=== PATIENT | female | born 1945 | race Caucasian/White ===

== ENCOUNTER 2017-03-08 08:59 | Emergency (ER) | payer MEDICARE, OTHER ==
[~2017-03-08] VITALS: Ht 165.1 cm; Wt 73.4 kg
[~2017-03-08 08:59] MED LIST: ATOR10TA64 PO; BISO1TAB32 PO; LEVO88TA7 PO; OMEP-29 PO; POTA10TA18 PO
[2017-03-08 09:00] VITALS: Ht 165.1 cm; Wt 73.4 kg
--- OUTSIDE RECORDS SUMMARY | 2017-03-08 09:04 | XMS REPORT | Referral Summary ---
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 Name Role Phone Betsy Manzanares Primary Care Physician [phone] Encounter VC Date(s): 12/22/14 - 12/22/14 [facility], [place], Family [address] [place] [id number] Discharge Diagnosis: High cholesterol Discharge Diagnosis: Impaired fasting glucose Discharge Diagnosis: Arteriosclerosis of left carotid artery Discharge Diagnosis: Adult hypothyroidism Discharge Diagnosis: Acute neck pain Discharge Diagnosis: Benign hypertension Discharge Diagnosis: Chronic low back pain Discharge Disposition: Home or Self Care Attending Physician: Tobin Manzanares MD Admitting Physician: Tobin Manzanares MD Vital Signs Most recent to 1 oldest [Reference Range]: Temperature Tympanic 36.8 degC [36.6-38.1 degC] (12/22/14 9:34 AM) Peripheral Pulse 72 bpm Rate [60-100 bpm] (12/22/14 9:34 AM) Blood Pressure 142/74 mmHg [90-140/60-90 mmHg] *HI* (12/22/14 9:34 AM) Problem List Condition Effective Dates Status Health Status Informant Benign Active hypertension(Confirm ed) Chronic low back Active pain(Confirmed) High Active cholesterol(Confirme d) Hypertension, Active essential, benign(Confirmed) Adult Active hypothyroidism(Confi rmed) Impaired fasting Active glucose(Confirmed) Insomnia(Confirmed) Active Milia(Confirmed) Active Miscarriage(Confirme 1974 Active d) Combined Active hyperlipidemia(Confi rmed) Onychomycosis(Confir Active med) Osteoarthritis - Active lower leg(Confirmed) Osteoarthritis of Active knee(Confirmed) PPOSSIBLE Restless Active leg syndrome(Confirmed) Seborrheic Active keratoses(Confirmed) Stress Active incontinence(Confirm ed) Allergies, Adverse Reactions, Alerts Substance Reaction Severity Status amoxicillin diarrhea Moderate Active cefixime diarrhea Moderate Active iodine rash Moderate Active Medications atorvastatin 10 mg oral tablet 1 tabs, Oral, Bedtime (once a day), # 30 tabs, 8 Refill(s), Pharmacy: [facility], 1 tabs Oral Bedtime (once a day) Start Date: 11/05/14 Status: Ordered bisoprolol-hydrochlorothiazide 5 mg-6.25 mg oral tablet 0.5 tabs, Oral, Daily, # 90 tabs, 2 Refill(s), Pharmacy: [facility] Start Date: 11/05/14 Stop Date: 08/05/15 Status: Ordered fexofenadine 180 mg oral tablet 1 tabs, Oral, Daily, as needed for allergy symptoms, X 90 days, # 90 tabs, 3 Refill(s), Pharmacy: [facility], 1 tabs Oral Daily,x90 days,PRN:as needed for allergy symptoms Start Date: 12/22/14 Stop Date: 12/17/15 Status: Ordered ibuprofen 200 mg oral tablet 2 tabs, Oral, q4hr, as needed for pain, # 120 tabs, 0 Refill(s) Start Date: 04/01/14 Status: Ordered levothyroxine 88 mcg (0.088 mg) oral tablet 1 tabs, Oral, Daily, # 90 tabs, 2 Refill(s), Pharmacy: [facility], 1 tabs Oral Daily Start Date: 11/05/14 Stop Date: 08/05/15 Status: Ordered Shamokin 5 mg-325 mg oral tablet 1 tabs, Oral, q6hr, as needed for pain, # 30 tabs, 0 Refill(s) Start Date: 12/22/14 Stop Date: 01/08/15 Status: Ordered omeprazole 20 mg oral delayed release capsule 1 caps, Oral, Daily, # 90 caps, 2 Refill(s), Pharmacy: [facility], 1 caps Oral Daily Start Date: 11/05/14 Status: Ordered potassium chloride 10 mEq oral tablet, extended release See Instructions, TAKE ONE TABLET BY MOUTH EVERY DAY, # 90 tabs, 2 Refill(s), Pharmacy: [facility], TAKE ONE TABLET BY MOUTH EVERY DAY Special Instructions: TAKE ONE TABLET BY MOUTH EVERY DAY Start Date: 11/05/14 Status: Ordered Systane Balance 1 drops, Eye-Both, BID, as needed for dry eyes, 0 Refill(s) Start Date: 04/01/14 Status: Ordered terbinafine 250 mg oral tablet See Instructions, 1 tabs daily for 7 out of 28 days, for one year, # 30 tabs, 1 Refill(s), Pharmacy: [facility], 1 tabs daily for 7 out of 28 days, for one year Special Instructions: 1 tabs daily for 7 out of 28 days, for one year Start Date: 11/05/14 Status: Ordered Vitamin D3 1000 intl units oral tablet 1 tabs, Oral, Daily, # 30 tabs, 0 Refill(s) Start Date: 12/22/14 Status: Ordered Results No data available for this section Immunizations Vaccine Date Refusal Reason tetanus/diphth/pertuss (Tdap) adult/adol 08/16/06 influenza virus vaccine, inactivated1 08/13/14 influenza virus vaccine, live 08/19/13 influenza virus vaccine, live 10/02/12 pneumococcal 13-valent conjugate vaccine 08/13/14 pneumococcal 23-polyvalent vaccine 06/26/11 pneumococcal 23-polyvalent vaccine 01/27/02 tetanus-diphth toxoids (Td) adult/adol 07/16/96 zoster vaccine live 12/23/08 1Result Comment: [08/13/2014] See scanned document Procedures Procedure Date Related Diagnosis Body Site Amputation, traumatic, toe1 2013 Toe amputation status2 2013 Cataract extraction 2011 Colonoscopy --> NORMAL, repeat in 5 years 2010 for positive family history of Colon Ca cysto and dilatation 2005 Colonoscopy 2004 Colonoscopy and EGD 1999 Esophagogastroduodenoscopy [EGD] with closed 1999 biopsy cysto and dilatation 1995 cysto and diatation (see NextGen) 1992 Umbilical hernia repair 1991 Biopsy of (RT) Breast (Benign) 1985 Dilation and curettage 1973 Cystoscopy/Lazer Vaporization and Dil 1right 2nd toe, due to hammertoe condition. 2right 2nd toe Social History Social History Type Response Smoking Status Never smoker Assessment and Plan Extracted from: Title: Ambulatory Patient Education Author: Tobin Manzanares MD Date: 12/22 Family Medicine Musculoskeletal Pain Musculoskeletal pain is muscle and bebeto aches and pains. These pains can occur in any part of the body. Your caregiver may treat you without knowing the cause of the pain. They may treat you if blood or urine tests, X-rays, and other tests were normal. CAUSES There is often not a definite cause or reason for these pains. These pains may be caused by a type of germ (virus ). The discomfort may also come from overuse. Overuse includes working out too hard when your body is not fit. Bebeto aches also come from weather changes. Bone is sensitive to atmospheric pressure changes. HOME CARE INSTRUCTIONS Ask when your test results will be ready. Make sure you get your test results. Only take jvov-iic-rcpmdck or prescription medicines for pain, discomfort, or fever as directed by your caregiver. If you were given medications for your condition, do not drive, operate machinery or power tools, or sign legal documents for 24 hours. Do not drink alcohol. Do not take sleeping pills or other medications that may interfere with treatment. Continue all activities unless the activities cause more pain. When the pain lessens, slowly resume normal activities. Gradually increase the intensity and duration of the activities or exercise. During periods of severe pain, bed rest may be helpful. Lay or sit in any position that is comfortable. Putting ice on the injured area. Put ice in a bag. Place a towel between your skin and the bag. Leave the ice on for 15 to 20 minutes, 3 to 4 times a day. Follow up with your caregiver for continued problems and no reason can be found for the pain. If the pain becomes worse or does not go away, it may be necessary to repeat tests or do additional testing. Your caregiver may need to look further for a possible cause. SEEK IMMEDIATE MEDICAL CARE IF: You have pain that is getting worse and is not relieved by medications. You develop chest pain that is associated with shortness or breath, sweating, feeling sick to your stomach (nauseous ), or throw up (vomit ). Your pain becomes localized to the abdomen. You develop any new symptoms that seem different or that concern you. MAKE SURE YOU: Understand these instructions. Will watch your condition. Will get help right away if you are not doing well or get worse. Document Released: 10/14/2006 Document Revised: 01/05/2013 Document Reviewed: [employer] Patient Information 2014 [employer] [facility]. No follow up information was provided. Extracted from: Title: Neck pain, HTN Author: Tobin Manzanares MD Date: 12/22/14 Impression and Plan Diagnosis Impaired fasting glucose (ICD9 790.21, Discharge, Medical). High cholesterol (ICD9 272.4, Discharge, Medical). Chronic low back pain (ICD9 724.2, Discharge, Medical). Benign hypertension (ICD9 401.1, Discharge, Medical). Adult hypothyroidism (ICD9 244.9, Discharge, Medical). Acute neck pain (ICD9 723.1, Discharge, Medical). Plan: Get plain xrays of your neck today. Schedule the MRI of your neck at the lab desk. Take Valium 10 mg one hour prior to your MRI. Not to drive at all that day. Continue your routine meds. Add Coenzyme Q 10 200 mg daily + vitamin D3 1000 IU daily. Stop the multivitamin, calcium and fish oil. Try your C-Collar for a couple of weeks. Use heat to your neck off and on. See me 6 weeks or so. , May use the Shamokin as needed for pain: but not to drive within 4 hours of a dose. , Use saline gel in the nose at night.. Orders Orders (Selected) Outpatient Orders Ordered Office Visit Level 5 Est 65236: Future (On Hold) MRI Spine Cervical w/o Contrast: XR Spine Cervical Comp w/ Obliques: Prescriptions Prescribed Shamokin 5 mg-325 mg oral tablet: 1 tabs, Oral, q6hr, 30 tabs, PRN: as needed for pain fexofenadine 180 mg oral tablet: 1 tabs, Oral, Daily, 90 tabs, PRN: as needed for allergy symptoms Completed diazepam 10 mg oral tablet: 1 tabs, Oral, Once, 1 tabs, PRN: one hour prior to MRI. 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, Acute neck pain | Chronic low back pain | High cholesterol | Impaired fasting glucose | Adult hypothyroidism Diagnosis: Adult hypothyroidism Comment: Ordered: Office Visit Level 5 Est [id number]; 12/22/14 10:37:00 BOXING INSTRUCTOR, Acute neck pain | Chronic low back pain | High cholesterol | Impaired fasting glucose | Adult hypothyroidism Diagnosis: Benign hypertension Comment: Ordered: Office Visit Level 5 Est [id number]; 12/22/14 10:37:00 BOXING INSTRUCTOR, Acute neck pain | Chronic low back pain | High cholesterol | Impaired fasting glucose | Adult hypothyroidism Diagnosis: Chronic low back pain Comment: Ordered: Office Visit Level 5 Est [id number]; 12/22/14 10:37:00 BOXING INSTRUCTOR, Acute neck pain | Chronic low back pain | High cholesterol | Impaired fasting glucose | Adult hypothyroidism Diagnosis: High cholesterol Comment: Ordered: Office Visit Level 5 Est [id number]; 12/22/14 10:37:00 BOXING INSTRUCTOR, Acute neck pain | Chronic low back pain | High cholesterol | Impaired fasting glucose | Adult hypothyroidism Diagnosis: Impaired fasting glucose Comment: Ordered: Office Visit Level 5 Est [id number]; 12/22/14 10:37:00 BOXING INSTRUCTOR, Acute neck pain | Chronic low back pain | High cholesterol | Impaired fasting glucose | Adult hypothyroidism Additional Orders: Comment: Future Orders: MRI Spine Cervical w/o Contrast,*Est. 12/22/14 due within 1 months, Routine, Reason: Pain, neck, No, Acute neck pain Ordered: Shamokin 5 mg-325 mg oral tablet,1 tabs, Oral, q6hr, as needed for pain, # 30 tabs, 0 Refill(s) Ordered: Vitamin D3 1000 intl units oral tablet,1 tabs, Oral, Daily , # 30 tabs, 0 Refill(s) Future Orders: XR Spine Cervical Comp w/ Obliques,12/22/14, Routine , Reason: Osteoarthritis spine, Acute neck pain Other status: diazepam 10 mg oral tablet,1 tabs, Oral, Once, one hour prior to MRI, # 1 tabs, 0 Refill(s)(Complete) Ordered: fexofenadine 180 mg oral tablet,1 tabs, Oral, Daily, as needed for allergy symptoms, X 90 days, # 90 tabs, 3 Refill(s), Pharmacy: [facility], 1 tabs Oral Daily,x90 days,PRN:as needed for allergy symptoms End of Orders ."
--- OUTSIDE RECORDS SUMMARY | 2017-03-08 09:04 | XMS REPORT | Referral Summary ---
Author Author [facility] Organization [facility] Address Unknown Phone Unavailable Care Team Providers Care Paperhanger Supervisor Name Role Phone Betsy Manzanares Primary Care Physician [phone] Encounter Date(s): 06/08/15 - 06/08/15 [facility]nu[facility] [address] [place] [id number] Discharge Diagnosis: Hypercholesterolemia Discharge Disposition: 01-Home or Self Care Attending Physician: Tobin Manzanares MD Admitting Physician: Tobin Manzanares MD Vital Signs Most recent to 1 oldest [Reference Range]: Temperature Tympanic 36.6 degC [36.6-38.1 degC] (06/08/15 10:27 AM) Peripheral Pulse 68 bpm Rate [60-100 bpm] (06/08/15 10:27 AM) Blood Pressure 136/62 mmHg [90-140/60-90 mmHg] (06/08/15 10:27 AM) SpO2 97 % (06/08/15 10:27 AM) Problem List Condition Effective Dates Status Health Status Informant Benign Active hypertension(Confirm ed) Right cervical Active radiculopathy(Confir med) Cervical Active spondylosis(Confirme d) Chronic low back Active pain(Confirmed) Contusion of knee, Active right(Confirmed) Fatigue(Confirmed) Active GERD Active (gastroesophageal reflux disease)(Confirmed) High Active cholesterol(Confirme d) Hypertension, Active essential, benign(Confirmed) Adult Active hypothyroidism(Confi rmed) Impaired fasting Active glucose(Confirmed) Impingement Active syndrome, shoulder(Confirmed) Insomnia(Confirmed) Active Milia(Confirmed) Active Miscarriage(Confirme 1974 Active d) Combined Active hyperlipidemia(Confi rmed) Onychomycosis(Confir Active med) Osteoarthritis - Active lower leg(Confirmed) Osteoarthritis of Active knee(Confirmed) PPOSSIBLE Restless Active leg syndrome(Confirmed) Seborrheic Active keratoses(Confirmed) Cervical spinal Active stenosis(Confirmed) Stress Active incontinence(Confirm ed) Allergies, Adverse Reactions, Alerts Substance Reaction Severity Status amoxicillin diarrhea Moderate Active cefixime diarrhea Moderate Active iodine rash Moderate Active Medications Aspir 81 81 mg, Oral, Daily, 0 Refill(s) Start Date: 02/01/15 Status: Ordered atorvastatin 10 mg oral tablet See Instructions, TAKE ONE (1) TABLET(S) DAILY AT BEDTIME, # 30 Each, eRx: Pharmacy - [facility], TAKE ONE (1) TABLET(S) DAILY AT BEDTIME Start Date: 07/27/15 Status: Ordered bisoprolol-hydrochlorothiazide 5 mg-6.25 mg oral tablet .5 mg, Oral, Daily, per Dr. Manzanares, # 30 tabs, 0 Refill(s) Start Date: 08/25/15 Status: Ordered Co-Q10 200 mg, Oral, Daily, 0 Refill(s) Start Date: 02/01/15 Status: Ordered fexofenadine 180 mg oral tablet 1 tabs, Oral, Daily, as needed for allergy symptoms, X 90 days, # 90 tabs, 3 Refill(s), [place] [facility] 1 tabs Oral Daily,x90 days,PRN:as needed for allergy symptoms Start Date: 12/22/14 Stop Date: 12/17/15 Status: Ordered gabapentin 100 mg oral capsule 1 caps, Oral, BID, # 180 caps, 3 Refill(s), Pharmacy: [facility], 1 caps Oral BID Start Date: 02/14/15 Status: Ordered levothyroxine 88 mcg (0.088 mg) oral tablet 88 mcg 1 tabs, Oral, Daily, per Dr. Manzanares, # 30 tabs, 0 Refill(s) Start Date: 08/25/15 Status: Ordered [place] 5 mg-325 mg oral tablet 1 tabs, Oral, Daily, as needed for back, neck and joint pain, 0 Refill(s) Start Date: 08/15/15 Status: Ordered omeprazole 20 mg oral delayed release capsule 20 mg 1 caps, Oral, Daily, # 90 caps, 1 Refill(s), Pharmacy: [facility], 1 caps Oral Daily Start Date: 06/13/15 Status: Ordered potassium chloride 10 mEq oral tablet, extended release See Instructions, TAKE ONE (1) TABLET(S) DAILY, # 90 Each, eRx: Pharmacy - [facility], TAKE ONE (1) TABLET(S) DAILY Start Date: 08/05/15 Status: Ordered Systane Balance 1 drops, Eye-Both, BID, as needed for dry eyes, 0 Refill(s) Start Date: 04/01/14 Status: Ordered terbinafine 250 mg oral tablet See Instructions, Take 1 tablet daily for 7 out of every 28 days for one year. , # 21 tabs, eRx: [facility], Take 1 tablet daily for 7 out of every 28 days for one year. Start Date: 04/27/15 Status: Ordered terbinafine 250 mg oral tablet See Instructions, 1 tabs daily for 7 out of 28 days, for one year, # 30 tabs, 1 Refill(s), [place] [facility] [place] 1 tabs daily for 7 out of 28 days, for one year Start Date: 11/05/14 Status: Ordered Vitamin D3 1000 intl units oral tablet 1 tabs, Oral, Daily, # 30 tabs, 0 Refill(s) Start Date: 12/22/14 Status: Ordered Results Chemistry Most recent to 1 oldest [Reference Range]: Vitamin B12 Lvl 711 pg/mL [213-816 pg/mL] (06/08/15 11:24 AM) Immunizations Vaccine Date Refusal Reason tetanus/diphth/pertuss (Tdap) adult/adol 08/16/06 hepatitis A adult vaccine 08/15/15 influenza virus vaccine, inactivated 08/15/15 influenza virus vaccine, inactivated1 08/13/14 influenza virus vaccine, live 08/19/13 influenza virus vaccine, live 10/02/12 pneumococcal 13-valent conjugate vaccine 08/13/14 pneumococcal 23-polyvalent vaccine 06/26/11 pneumococcal 23-polyvalent vaccine 01/27/02 tetanus-diphth toxoids (Td) adult/adol 07/16/96 zoster vaccine live 12/23/08 1Result Comment: [08/13/2014] See scanned document Procedures Procedure Date Related Diagnosis Body Site Amputation, traumatic, toe1 2013 Cataract extraction2011 Colonoscopy --> NORMAL, repeat in 5 years 2011 for positive family history of Colon Ca cysto and dilatation 2006 Colonoscopy 2005 Colonoscopy and EGD 2000 Esophagogastroduodenoscopy [EGD] with closed 2000 biopsy cysto and dilatation 1995 cysto and diatation (see NextGen) 1992 Umbilical hernia repair 1991 Biopsy of (RT) Breast (Benign)3 1985 Dilation and curettage 1973 Cystoscopy/Lazer Vaporization and Dil 1right 2nd toe, due to hammertoe condition. 2left eye only 3biopsy Social History Social History Type Response Smoking Status Never smoker Assessment and Plan Extracted from: Title: Ambulatory Patient Education Author: Tobin Manzanares MD Date: 06/08 Family Medicine Gastroesophageal Reflux Disease, Adult Gastroesophageal reflux disease (GERD) happens when acid from your stomach flows up into the esophagus. When acid comes in contact with the esophagus, the acid causes soreness (inflammation) in the esophagus. Over time, GERD may create small holes (ulcers) in the lining of the esophagus. CAUSES Increased body weight. This puts pressure on the stomach, making acid rise from the stomach into the esophagus. Smoking. This increases acid production in the stomach. Drinking alcohol. This causes decreased pressure in the lower esophageal sphincter (valve or ring of muscle between the esophagus and stomach), allowing acid from the stomach into the esophagus. Late evening meals and a full stomach. This increases pressure and acid production in the stomach. A malformed lower esophageal sphincter. Sometimes, no cause is found. SYMPTOMS Burning pain in the lower part of the mid-chest behind the breastbone and in the mid-stomach area. This may occur twice a week or more often. Trouble swallowing. Sore throat. Dry cough. Asthma-like symptoms including chest tightness, shortness of breath, or wheezing. DIAGNOSIS Your caregiver may be able to diagnose GERD based on your symptoms. In some cases, X-rays and other tests may be done to check for complications or to check the condition of your stomach and esophagus. TREATMENT Your caregiver may recommend [id number] or prescription medicines to help decrease acid production. Ask your caregiver before starting or adding any new medicines. HOME CARE INSTRUCTIONS Change the factors that you can control. Ask your caregiver for guidance concerning weight loss, quitting smoking, and alcohol consumption. Avoid foods and drinks that make your symptoms worse, such as: Caffeine or alcoholic drinks. Chocolate. Peppermint or mint flavorings. Garlic and onions. Spicy foods. [place]win fruits, such as oranges, emmy, or limes. Tomato-based foods such as sauce, chili, salsa, and pizza. Fried and fatty foods. Avoid lying down for the 3 hours prior to your bedtime or prior to taking a nap. Eat small, frequent meals instead of large meals. Wear loose-fitting clothing. Do not wear anything tight around your waist that causes pressure on your stomach. Raise the head of your bed 6 to 8 inches with wood blocks to help you sleep. Extra pillows will not help. Only take htyd-yum-ksminou or prescription medicines for pain, discomfort, or fever as directed by your caregiver. Do not take aspirin, ibuprofen, or other nonsteroidal anti-inflammatory drugs (NSAIDs). SEEK IMMEDIATE MEDICAL CARE IF: You have pain in your arms, neck, jaw, teeth, or back. Your pain increases or changes in intensity or duration. You develop nausea, vomiting, or sweating (diaphoresis). You develop shortness of breath, or you faint. Your vomit is green, yellow, black, or looks like coffee grounds or blood. Your stool is red, bloody, or black. These symptoms could be signs of other problems, such as heart disease, gastric bleeding, or esophageal bleeding. MAKE SURE YOU: Understand these instructions. Will watch your condition. Will get help right away if you are not doing well or get worse. Document Released: 07/24/2006 Document Revised: 01/05/2013 Document Reviewed: [facility] Patient Information 2015 [facility], [facility]. This information is not intended to replace advice given to you by your health care provider. Make sure you discuss any questions you have with your health care provider. No follow up information was provided. Extracted from: Title: Neck pain, Author: Tobin Manzanares MD Date: 06/08/15 hypercholesterolemia, HTN Impression and Plan Diagnosis Benign hypertension (ICD9 401.1, Working, Medical). Cervical spinal stenosis (ICD9 723.0, Working, Medical). Fatigue (ICD9 780.79, Working, Medical). GERD (gastroesophageal reflux disease) (ICD9 530.81, Working, Medical). Hypercholesterolemia (ICD9 272.0, Discharge, Medical). Plan: 1) Vitamin B12 level ordered, due to fatigue. 2) Try to wean off the Omeprazole, if possible. 3) Continue your other meds. 4) Extensive discussion held about treatments of neck pain. 5) Try PT with a TENS trial for the neck pain. 6) See me in 2-3 months for a physical.. Orders Orders (Selected) Outpatient Orders Ordered Office Visit Level 4 Est 29547: Vitamin B12 Level: . Dx/Order Association Plan: Diagnosis: Benign hypertension Comment: Ordered: Office Visit Level 4 Est [id number]; 06/08/15 11:15:00 CDT, Cervical spinal stenosis | Fatigue | Benign hypertension | Hypercholesterolemia | GERD (gastroesophageal reflux disease) Diagnosis: Cervical spinal stenosis Comment: Ordered: Office Visit Level 4 Est [id number]; 06/08/15 11:15:00 CDT, Cervical spinal stenosis | Fatigue | Benign hypertension | Hypercholesterolemia | GERD (gastroesophageal reflux disease) Diagnosis: Fatigue Comment: Ordered: Vitamin B12 Level; Blood, Routine Collect, 06/08/15 11:16 :00 CDT, Once, Stop date 06/08/15 11:16:00 CDT, Lab Collect, Fatigue Office Visit Level 4 Est [id number]; 06/08/15 11:15:00 CDT, Cervical spinal stenosis | Fatigue | Benign hypertension | Hypercholesterolemia | GERD (gastroesophageal reflux disease) Diagnosis: GERD (gastroesophageal reflux disease) Comment: Ordered: Office Visit Level 4 Est [id number]; 06/08/15 11:15:00 CDT, Cervical spinal stenosis | Fatigue | Benign hypertension | Hypercholesterolemia | GERD (gastroesophageal reflux disease) Diagnosis: Hypercholesterolemia Comment: Ordered: Office Visit Level 4 Est [id number]; 06/08/15 11:15:00 CDT, Cervical spinal stenosis | Fatigue | Benign hypertension | Hypercholesterolemia | GERD (gastroesophageal reflux disease) End of Orders ."
--- OUTSIDE RECORDS SUMMARY | 2017-03-08 09:04 | XMS REPORT | Referral Summary ---
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 Name Role Phone Betsy Manzanares Primary Care Physician [phone] Encounter VC Date(s): 08/15/15 - 08/15/15 [facility] [address] [place] [id number] Discharge Disposition: 01-Home or Self Care Attending Physician: Tobin Manzanares MD Admitting Physician: Tobin Manzanares MD Vital Signs Most recent to 1 oldest [Reference Range]: Temperature Tympanic 36.8 degC [36.6-38.1 degC] (08/15/15 8:51 AM) Peripheral Pulse 61 bpm Rate [60-100 bpm] (08/15/15 8:51 AM) Blood Pressure 146/80 mmHg [90-140/60-90 mmHg] *HI* (08/15/15 8:51 AM) SpO2 95 % (08/15/15 8:51 AM) Problem List Condition Effective Dates Status Health Status Informant Benign Active hypertension(Confirm ed) Right cervical Active radiculopathy(Confir med) Cervical Active spondylosis(Confirme d) Chronic low back Active pain(Confirmed) Contusion of knee, Active right(Confirmed) DDD (degenerative Active disc disease), cervical(Confirmed) Fatigue(Confirmed) Active GERD Active (gastroesophageal reflux disease)(Confirmed) High Active cholesterol(Confirme d) Hypertension, Active essential, benign(Confirmed) Adult Active hypothyroidism(Confi rmed) Impaired fasting Active glucose(Confirmed) Impingement Active syndrome, shoulder(Confirmed) Insomnia(Confirmed) Active Milia(Confirmed) Active Miscarriage(Confirme 1974 Active d) Combined Active hyperlipidemia(Confi rmed) Cervicalgia(Confirme Active d) Onychomycosis(Confir Active med) Osteoarthritis of Active knee(Confirmed) Osteoarthritis - Active lower leg(Confirmed) PPOSSIBLE Restless Active leg syndrome(Confirmed) Seborrheic Active keratoses(Confirmed) Cervical spinal Active stenosis(Confirmed) Acquired Active spondylolisthesis(Co nfirmed) Stress Active incontinence(Confirm ed) Allergies, Adverse Reactions, Alerts Substance Reaction Severity Status amoxicillin diarrhea Moderate Active cefixime diarrhea Moderate Active iodine rash Moderate Active Medications Aspir 81 81 mg, Oral, Daily, 0 Refill(s) Start Date: 02/01/15 Status: Ordered atorvastatin 10 mg oral tablet 10 mg 1 tabs, Oral, Bedtime (once a day), # 30 tabs, 10 Refill(s), [place] [facility] [place], 1 tabs Oral Bedtime (once a day) Start Date: 09/29/15 Status: Ordered Co-Q10 200 mg, Oral, Daily, 0 Refill(s) Start Date: 02/01/15 Status: Ordered levothyroxine 88 mcg (0.088 mg) oral tablet 88 mcg 1 tabs, Oral, Daily, # 90 tabs, 2 Refill(s), [facility] [place], 1 tabs Oral Daily Start Date: 10/10/15 Status: Ordered lisinopril 5 mg oral tablet 5 mg 1 tabs, Oral, Daily, # 30 tabs, 11 Refill(s), Pharmacy: [facility] [place], 1 tabs Oral Daily Start Date: 02/13/16 Status: Ordered [place] 5 mg-325 mg oral tablet 1 tabs, Oral, q6hr, as needed for pain, FOR NECK AND BACK PAIN, # 30 tabs, 0 Refill(s) Start Date: 12/09/15 Status: Ordered omeprazole 20 mg oral delayed release capsule See Instructions, 1 caps Oral Daily, # 90 caps, eRx: Pharmacy - [place], 1 caps Oral Daily Start Date: 12/09/15 Status: Ordered Systane Balance 1 drops, Eye-Both, BID, as needed for dry eyes, 0 Refill(s) Start Date: 04/01/14 Status: Ordered Vitamin D3 1000 intl units oral tablet 1 tabs, Oral, Daily, # 30 tabs, 0 Refill(s) Start Date: 2/25/15 Status: Ordered Results Hematology Most recent to 1 oldest [Reference Range]: WBC [4.8-10.8 5.7 10*3/uL 10*3/uL] (08/15/15 10:12 AM) RBC [4.00-5.20] 4.73 (08/15/15 10:12 AM) Hgb [12.0-16.0 13.5 gm/dL gm/dL] (08/15/15 10:12 AM) Hct [37.0-47.0 %] 40.4 % (08/15/15 10:12 AM) MCV [82.0-99.0 fL] 85.4 fL (08/15/15 10:12 AM) MCH [27.0-32.0 pg] 28.5 pg (08/15/15 10:12 AM) MCHC [32.0-36.0 33.4 gm/dL gm/dL] (08/15/15 10:12 AM) RDW [11.5-14.5 %] 13.4 % (08/15/15 10:12 AM) Platelet [150-400 298 10*3/uL 10*3/uL] (08/15/15 10:12 AM) MPV [8.8-14.8 fL] 10.4 fL (08/15/15 10:12 AM) Immature 0.2 % Granulocytes (08/15/15 10:12 AM) [0.0-1.0 %] Neutrophils [51-75 59 % %] (08/15/15 10:12 AM) Lymphocytes [20-46 28 % %] (08/15/15 10:12 AM) Monocytes [4-11 %] 9 % (08/15/15 10:12 AM) Eosinophils [0-4 %] 4 % (08/15/15 10:12 AM) Basophils [0-2 %] 0 % (08/15/15 10:12 AM) Neutro Absolute 3.39 10*3 [1.90-7.00 10*3] (08/15/15 10:12 AM) Lymph Absolute 1.59 10*3 [0.80-3.30 10*3] (08/15/15 10:12 AM) [place] Absolute 0.50 10*3 [0.30-1.00 10*3] (08/15/15 10:12 AM) Eos Absolute 0.22 10*3 [0.00-0.50 10*3] (08/15/15 10:12 AM) Baso Absolute 0.02 10*3 [0.00-0.20 10*3] (08/15/15 10:12 AM) Chemistry Most recent to 1 oldest [Reference Range]: Sodium Lvl [135-144 141 mEq/L mEq/L] (08/15/15 10:12 AM) Potassium Lvl 4.6 mEq/L [3.5-5.2 mEq/L] (08/15/15 10:12 AM) Chloride [99-111 107 mEq/L mEq/L] (08/15/15 10:12 AM) CO2 [22-31 mEq/L] 27 mEq/L (08/15/15 10:12 AM) AGAP [3-20] 7 (08/15/15 10:12 AM) BUN [10-20 mg/dL] 18 mg/dL (08/15/15 10:12 AM) Glucose Lvl [70-99 108 mg/dL mg/dL] *HI* (08/15/15 10:12 AM) Creatinine Lvl 1.02 mg/dL [0.57-1.11 mg/dL] (08/15/15 10:12 AM) eGFR [>60 mL/min] 54 mL/min 1 *ABN* (08/15/15 10:12 AM) Calcium Lvl 10.1 mg/dL [8.9-10.5 mg/dL] (08/15/15 10:12 AM) Albumin Lvl [3.4-4.8 4.2 gm/dL gm/dL] (08/15/15 10:12 AM) Total Protein 7.3 gm/dL [6.2-8.1 gm/dL] (08/15/15 10:12 AM) Globulin [1.8-4.0 3.1 gm/dL gm/dL] (08/15/15 10:12 AM) ALT [0-55 U/L] 21 U/L (08/15/15 10:12 AM) AST [5-34 U/L] 22 U/L (08/15/15 10:12 AM) Alk Phos [40-150 68 U/L U/L] (08/15/15 10:12 AM) Bili Total [0.2-1.2 0.4 mg/dL mg/dL] (08/15/15 10:12 AM) Chol [0-199 mg/dL] 170 mg/dL (08/15/15 10:12 AM) Trig [0-149 mg/dL] 97 mg/dL (08/15/15 10:12 AM) HDL [40-84 mg/dL] 46 mg/dL (08/15/15 10:12 AM) LDL [0-130 mg/dL] 105 mg/dL (08/15/15 10:12 AM) VLDL Cholesterol 19 mg/dL [0-28 mg/dL] (08/15/15 10:12 AM) Cardiac Risk 3.7 [0.0-5.0] (08/15/15 10:12 AM) Hgb A1c [4.1-5.6 %] 5.9 % *HI* (08/15/15 10:12 AM) eAvg Glucose 122.6 mg/dL (08/15/15 10:12 AM) 1Result Comment: Multiply eGFR results by 1.21 for race. Urinalysis Most recent to 1 oldest [Reference Range]: UA Color Yellow (08/15/15 10:20 AM) UA Appear Clear (08/15/15 10:20 AM) UA pH [5.0-8.0] 6.0 (08/15/15 10:20 AM) UA Leuk Est Pos 1+ [Negative] *ABN* (08/15/15 10:20 AM) UA Nitrite Negative [Negative] (08/15/15 10:20 AM) UA Protein Negative [Negative] (08/15/15 10:20 AM) UA Glucose Negative [Negative] (08/15/15 10:20 AM) UA Ketones Negative [Negative] (08/15/15 10:20 AM) UA Urobilinogen 1.0 mg/dL [<1.0 mg/dL] (08/15/15 10:20 AM) UA Bili [Negative] Negative (08/15/15 10:20 AM) UA Blood [Negative] Pos 2+ *ABN* (08/15/15 10:20 AM) UA Spec Grav 1.024 [1.003-1.030] (08/15/15 10:20 AM) Type Clean Catch (08/15/15 10:20 AM) UA WBC [0-4] 0-2 (08/15/15 10:20 AM) UA RBC [0-4] 10-20 *ABN* (08/15/15 10:20 AM) Epithelial Cells 2-5 (08/15/15 10:20 AM) Microbiology Reports TEST: Urine Culture STATUS: Auth (Verified) BODY SITE: SOURCE: Urine COLLECTED DATE/TIME: 08/15/15 10:20 AM Urine Culture Normal urogenital/skin anthony present Immunizations Vaccine Date Refusal Reason tetanus/diphth/pertuss (Tdap) adult/adol 08/16/06 hepatitis A adult vaccine 02/13/16 hepatitis A adult vaccine 08/15/15 influenza virus vaccine, inactivated 08/15/15 influenza virus vaccine, inactivated1 08/13/14 influenza virus vaccine, live 08/19/13 influenza virus vaccine, live 10/02/12 pneumococcal 13-valent conjugate vaccine 08/13/14 pneumococcal 23-polyvalent vaccine 06/26/11 pneumococcal 23-polyvalent vaccine 01/27/02 tetanus-diphth toxoids (Td) adult/adol 07/16/96 zoster vaccine live 12/23/08 1Result Comment: [08/13/2014] See scanned document Procedures Procedure Date Related Diagnosis Body Site Right C4-6 Radiofrequency 12/14/15 Colonoscopy normal1 12/08/15 Right C4-6 Medial Branch Block with 11/24/15 Differential Right C4-6 Medial Branch Block 11/17/15 Amputation, traumatic, toe2 2013 Cataract extraction2011 Colonoscopy --> NORMAL, repeat in 5 years 2010 for positive family history of Colon Ca cysto and dilatation 2006 Colonoscopy 2005 Colonoscopy and EGD 1999 Esophagogastroduodenoscopy [EGD] with closed 1999 biopsy cysto and dilatation 1995 cysto and diatation (see NextGen) 1992 Umbilical hernia repair 1991 Biopsy of (RT) Breast (Benign)4 1985 Dilation and curettage 1973 Cystoscopy/Lazer Vaporization and Dil 1hyperplastic polyp, sigmoid diverticulosis, family history colon cancer in her father, repeat in 5 years 2right 2nd toe, due to hammertoe condition. 3left eye only 4biopsy Social History Social History Type Response Smoking Status Never smoker Assessment and Plan Extracted from: Title: Ambulatory Patient Education Author: Tobin Manzanares MD Date: Family Medicine Back Exercises Back exercises help treat and prevent back injuries. The goal of back exercises is to increase the strength of your abdominal and back muscles and the flexibility of your back. These exercises should be started when you no longer have back pain. Back exercises include: Pelvic Tilt. Lie on your back with your knees bent. Tilt your pelvis until the lower part of your back is against the floor. Hold this position 5 to 10 sec and repeat 5 to 10 times. Knee to Chest. Pull first 1 knee up against your chest and hold for 20 to 30 seconds, repeat this with the other knee, and then both knees. This may be done with the other leg straight or bent, whichever feels better. Sit-Ups or Curl-Ups. Bend your knees 90 degrees. Start with tilting your pelvis, and do a partial, slow sit-up, lifting your trunk only 30 to 45 degrees off the floor. Take at least 2 to 3 seconds for each sit-up. Do not do sit-ups with your knees out straight. If partial sit-ups are difficult, simply do the above but with only tightening your abdominal muscles and holding it as directed. Hip-Lift. Lie on your back with your knees flexed 90 degrees. Push down with your feet and shoulders as you raise your hips a couple inches off the floor; hold for 10 seconds, repeat 5 to 10 times. Back arches. Lie on your stomach, propping yourself up on bent elbows. Slowly press on your hands, causing an arch in your low back. Repeat 3 to 5 times. Any initial stiffness and discomfort should lessen with repetition over time. Shoulder-Lifts. Lie face down with arms beside your body. Keep hips and torso pressed to floor as you slowly lift your head and shoulders off the floor. Do not overdo your exercises, especially in the beginning. Exercises may cause you some mild back discomfort which lasts for a few minutes; however, if the pain is more severe, or lasts for more than 15 minutes, do not continue exercises until you see your caregiver. Improvement with exercise therapy for back problems is slow. See your caregivers for assistance with developing a proper back exercise program. Document Released: 11/21/2005 Document Revised: 01/05/2013 Document Reviewed: [facility] Patient Information 2015 [facility]. This information is not intended to replace advice given to you by your health care provider. Make sure you discuss any questions you have with your health care provider. Cholesterol Cholesterol is a white, waxy, fat-like substance needed by your body in small amounts. The liver makes all the cholesterol you need. Cholesterol is carried from the liver by the blood through the blood vessels. Deposits of cholesterol ( plaque) may build up on blood vessel beckman. These make the arteries narrower and stiffer. Cholesterol plaques increase the risk for heart attack and stroke. You cannot feel your cholesterol level even if it is very high. The only way to know it is high is with a blood test. Once you know your cholesterol levels, you should keep a record of the test results. Work with your health care provider to keep your levels in the desired range. WHAT DO THE RESULTS MEAN? Total cholesterol is a rough measure of all the cholesterol in your blood. LDL is the so-called bad cholesterol. This is the type that deposits cholesterol in the beckman of the arteries. You want this level to be low. HDL is the good cholesterol because it cleans the arteries and carries the LDL away. You want this level to be high. Triglycerides are fat that the body can either burn for energy or store. High levels are closely linked to heart disease. WHAT ARE THE DESIRED LEVELS OF CHOLESTEROL? Total cholesterol below 200. LDL below 100 for people at risk, below 70 for those at very high risk. HDL above 50 is good, above 60 is best. Triglycerides below 150. HOW CAN I LOWER MY CHOLESTEROL? Diet. Follow your diet programs as directed by your health care provider. Choose fish or white meat chicken and turkey, roasted or baked. Limit fatty cuts of red meat, fried foods, and processed meats, such as sausage and lunch meats. Eat lots of fresh fruits and vegetables. Choose whole grains, beans, pasta, potatoes, and cereals. Use only small amounts of olive, corn, or canola oils. Avoid butter, mayonnaise, shortening, or palm kernel oils. Avoid foods with trans fats. Drink skim or nonfat milk and eat low-fat or nonfat yogurt and cheeses. Avoid whole milk, cream, ice cream, egg yolks, and full-fat cheeses. Healthy desserts include chandler food cake, sue snaps, animal crackers, hard candy, popsicles, and low-fat or nonfat frozen yogurt. Avoid pastries, cakes, pies, and cookies. Exercise. Follow your exercise programs as directed by your health care provider. A regular program helps decrease LDL and raise HDL. A regular program helps with weight control. Do things that increase your activity level like gardening, walking, or taking the stairs. Ask your health care provider about how you can be more active in your daily life. Medicine. Take medicine only as directed by your health care provider. Medicine may be prescribed by your health care provider to help lower cholesterol and decrease the risk for heart disease. If you have several risk factors, you may need medicine even if your levels are normal. Document Released: 07/09/2002 Document Revised: 02/28/2015 Document Reviewed: [facility] Patient Information 2015 [employer]. This information is not intended to replace advice given to you by your health care provider. Make sure you discuss any questions you have with your health care provider. Gastroesophageal Reflux Disease, Adult Gastroesophageal reflux disease [...] and esophagus. TREATMENT Your caregiver may recommend [id number] or prescription medicines to help decrease acid [...] mint flavorings. Garlic and onions. Spicy foods. [place] fruits, such as oranges, emmy, or limes. [...] Extra pillows will not help. Only take [id number]-[id number] or prescription medicines for pain, discomfort, or [...] Released: 07/24/2006 Document Revised: 01/05/2013 Document Reviewed: [employer] Patient Information 2015 [employer] [facility]. This information is not intended to replace advice given to you by your health care provider. Make sure you discuss any questions you have with your health care provider. Preventive Care for Adults A healthy lifestyle and preventive care can promote health and wellness. Preventive health guidelines for women include the following smith practices. A routine yearly physical is a good way to check with your health care provider about your health and preventive screening. It is a chance to share any concerns and updates on your health and to receive a thorough exam. Visit your dentist for a routine exam and preventive care every 6 months. Lititz your teeth twice a day and floss once a day. Good oral hygiene prevents tooth decay and gum disease. The frequency of eye exams is based on your age, health, family medical history, use of contact lenses, and other factors. Follow your health care provider's recommendations for frequency of eye exams. Eat a healthy diet. Foods like vegetables, fruits, whole grains, low-fat dairy products, and lean protein foods contain the nutrients you need without too many calories. Decrease your intake of foods high in solid fats, added sugars, and salt. Eat the right amount of calories for you.Get information about a proper diet from your health care provider, if necessary. Regular physical exercise is one of the most important things you can do for your health. Most adults should get at least 150 minutes of moderate- intensity exercise (any activity that increases your heart rate and causes you to sweat) each week. In addition, most adults need muscle-strengthening exercises on 2 or more days a week. Maintain a healthy weight. The body mass index (BMI) is a screening tool to identify possible weight problems. It provides an estimate of body fat based on height and weight. Your health care provider can find your BMI and can help you achieve or maintain a healthy weight.For adults 20 years and older: A BMI below 18.5 is considered underweight. A BMI of 18.5 to 24.9 is normal. A BMI of 25 to 29.9 is considered overweight. A BMI of 30 and above is considered obese. Maintain normal blood lipids and cholesterol levels by exercising and minimizing your intake of saturated fat. Eat a balanced diet with plenty of fruit and vegetables. Blood tests for lipids and cholesterol should begin at age 20 and be repeated every 5 years. If your lipid or cholesterol levels are high, you are over 50, or you are at high risk for heart disease, you may need your cholesterol levels checked more frequently.Ongoing high lipid and cholesterol levels should be treated with medicines if diet and exercise are not working. If you smoke, find out from your health care provider how to quit. If you do not use tobacco, do not start. Lung cancer screening is recommended for adults aged 5580 years who are at high risk for developing lung cancer because of a history of smoking. A yearly low-dose CT scan of the lungs is recommended for people who have at least a 34-laug-ziyv history of smoking and are a current smoker or have quit within the past 15 years. A pack year of smoking is smoking an average of 1 pack of cigarettes a day for 1 year (for example: 1 pack a day for 30 years or 2 packs a day for 15 years). Yearly screening should continue until the smoker has stopped smoking for at least 15 years. Yearly screening should be stopped for people who develop a health problem that would prevent them from having lung cancer treatment. If you are , do not drink alcohol. If you are , be very cautious about drinking alcohol. If you are not and choose to drink alcohol, do not have more than 1 drink per day. One drink is considered to be 12 ounces (355 mL) of beer, 5 ounces (148 mL) of wine, or 1.5 ounces (44 mL) of liquor. Avoid use of street drugs. Do not share needles with anyone. Ask for help if you need support or instructions about stopping the use of drugs. High blood pressure causes heart disease and increases the risk of stroke. Your blood pressure should be checked at least every 1 to 2 years. Ongoing high blood pressure should be treated with medicines if weight loss and exercise do not work. If you are 5579 years old, ask your health care provider if you should take aspirin to prevent strokes. Diabetes screening involves taking a blood sample to check your fasting blood sugar level. This should be done once every 3 years, after age 45, if you are within normal weight and without risk factors for diabetes. Testing should be considered at a younger age or be carried out more frequently if you are overweight and have at least 1 risk factor for diabetes. Breast cancer screening is essential preventive care for women. You should practice "breast self-awareness." This means understanding the normal appearance and feel of your breasts and may include breast self-examination. Any changes detected, no matter how small, should be reported to a health care provider. Women in their 20s and 30s should have a clinical breast exam (CBE) by a health care provider as part of a regular health exam every 1 to 3 years. After age 40, women should have a CBE every year. Starting at age 40, women should consider having a mammogram (breast X-ray test) every year. Women who have a family history of breast cancer should talk to their health care provider about genetic screening. Women at a high risk of breast cancer should talk to their health care providers about having an MRI and a mammogram every year. Breast cancer gene (BRCA)-related cancer risk assessment is recommended for women who have family members with BRCA-related cancers. BRCA-related cancers include breast, ovarian, tubal, and peritoneal cancers. Having family members with these cancers may be associated with an increased risk for harmful changes (mutations) in the breast cancer genes BRCA1 and BRCA2. Results of the assessment will determine the need for genetic counseling and BRCA1 and BRCA2 testing. Routine pelvic exams to screen for cancer are no longer recommended for non women who are considered low risk for cancer of the pelvic organs ( ovaries, uterus, and vagina) and who do not have symptoms. Ask your health care provider if a screening pelvic exam is right for you. If you have had past treatment for cervical cancer or a condition that could lead to cancer, you need Pap tests and screening for cancer for at least 20 years after your treatment. If Pap tests have been discontinued, your risk factors (such as having a new sexual partner) need to be reassessed to determine if screening should be resumed. Some women have medical problems that increase the chance of getting cervical cancer. In these cases, your health care provider may recommend more frequent screening and Pap tests. The HPV test is an additional test that may be used for cervical cancer screening. The HPV test looks for the virus that can cause the cell changes on the cervix. The cells collected during the Pap test can be tested for HPV. The HPV test could be used to screen women aged 30 years and older, and should be used in women of any age who have unclear Pap test results. After the age of 30 , women should have HPV testing at the same frequency as a Pap test. Colorectal cancer can be detected and often prevented. Most routine colorectal cancer screening begins at the age of 50 years and continues through age 75 years. However, your health care provider may recommend screening at an earlier age if you have risk factors for colon cancer. On a yearly basis, your health care provider may provide home test kits to check for hidden blood in the stool. Use of a small camera at the end of a tube, to directly examine the colon (sigmoidoscopy or colonoscopy), can detect the earliest forms of colorectal cancer. Talk to your health care provider about this at age 50, when routine screening begins. Direct exam of the colon should be repeated every 5 10 years through age 75 years, unless early forms of pre-cancerous polyps or small growths are found. People who are at an increased risk for hepatitis B should be screened for this virus. You are considered at high risk for hepatitis B if: You were born in a country where hepatitis B occurs often. Talk with your health care provider about which countries are considered high risk. Your parents were born in a high-risk country and you have not received a shot to protect against hepatitis B (hepatitis B vaccine). You have HIV or AIDS. You use needles to inject street drugs. You live with, or have sex with, someone who has hepatitis B. You get hemodialysis treatment. You take certain medicines for conditions like cancer, organ transplantation, and autoimmune conditions. Hepatitis C blood testing is recommended for all people born from 1945 through 1965 and any individual with known risks for hepatitis C. Practice safe sex. Use condoms and avoid high-risk sexual practices to reduce the spread of sexually transmitted infections (STIs). STIs include gonorrhea, chlamydia, syphilis, trichomonas, herpes, HPV, and human immunodeficiency virus (HIV). Herpes, HIV, and HPV are viral illnesses that have no cure. They can result in disability, cancer, and . You should be screened for sexually transmitted illnesses (STIs) including gonorrhea and chlamydia if: You are sexually active and are younger than 24 years. You are older than 24 years and your health care provider tells you that you are at risk for this type of infection. Your sexual activity has changed since you were last screened and you are at an increased risk for chlamydia or gonorrhea. Ask your health care provider if you are at risk. If you are at risk of being infected with HIV, it is recommended that you take a prescription medicine daily to prevent HIV infection. This is called preexposure prophylaxis (PrEP). You are considered at risk if: You are a heterosexual woman, are sexually active, and are at increased risk for HIV infection. You take drugs by injection. You are sexually active with a partner who has HIV. Talk with your health care provider about whether you are at high risk of being infected with HIV. If you choose to begin PrEP, you should first be tested for HIV. You should then be tested every 3 months for as long as you are taking PrEP. Osteoporosis is a disease in which the bones lose minerals and strength with aging. This can result in serious bone fractures or breaks. The risk of osteoporosis can be identified using a bone density scan. Women ages 65 years and over and women at risk for fractures or osteoporosis should discuss screening with their health care providers. Ask your health care provider whether you should take a calcium supplement or vitamin D to reduce the rate of osteoporosis. Menopause can be associated with physical symptoms and risks. Hormone replacement therapy is available to decrease symptoms and risks. You should talk to your health care provider about whether hormone replacement therapy is right for you. Use sunscreen. Apply sunscreen liberally and repeatedly throughout the day. You should seek shade when your shadow is shorter than you. Protect yourself by wearing long sleeves, pants, a wide-brimmed hat, and sunglasses year round, whenever you are outdoors. Once a month, do a whole body skin exam, using a mirror to look at the skin on your back. Tell your health care provider of new moles, moles that have irregular borders, moles that are larger than a pencil eraser, or moles that have changed in shape or color. Stay current with required vaccines (immunizations). Influenza vaccine. All adults should be immunized every year. Tetanus, diphtheria, and acellular pertussis (Td, Tdap) vaccine. women should receive 1 dose of Tdap vaccine during each . The dose should be obtained regardless of the length of time since the last dose. Immunization is preferred during the [id number] week of gestation. An adult who has not previously received Tdap or who does not know her vaccine status should receive 1 dose of Tdap. This initial dose should be followed by tetanus and diphtheria toxoids (Td) booster doses every 10 years. Adults with an unknown or incomplete history of completing a 3-dose immunization series with Td -containing vaccines should begin or complete a primary immunization series including a Tdap dose. Adults should receive a Td booster every 10 years. Varicella vaccine. An adult without evidence of immunity to varicella should receive 2 doses or a second dose if she has previously received 1 dose. females who do not have evidence of immunity should receive the first dose after . This first dose should be obtained before leaving the health care facility. The second dose should be obtained 48 weeks after the first dose. Human papillomavirus (HPV) vaccine. Females aged 1326 years who have not received the vaccine previously should obtain the 3-dose series. The vaccine is not recommended for use in females. However, testing is not needed before receiving a dose. If a female is found to be after receiving a dose, no treatment is needed. In that case, the remaining doses should be delayed until after the . Immunization is recommended for any person with an immunocompromised condition through the age of 26 years if she did not get any or all doses earlier. During the 3-dose series, the second dose should be obtained 48 weeks after the first dose. The third dose should be obtained 24 weeks after the first dose and 16 weeks after the second dose. Zoster vaccine. One dose is recommended for adults aged 60 years or older unless certain conditions are present. Measles, mumps, and rubella (MMR) vaccine. Adults born before 1955 generally are considered immune to measles and mumps. Adults born in 1955 or later should have 1 or more doses of MMR vaccine unless there is a contraindication to the vaccine or there is laboratory evidence of immunity to each of the three diseases. A routine second dose of MMR vaccine should be obtained at least 28 days after the first dose for students attending postsecondary schools, health care workers, or international travelers. People who received inactivated measles vaccine or an unknown type of measles vaccine during should receive 2 doses of MMR vaccine. People who received inactivated mumps vaccine or an unknown type of mumps vaccine before 1978 and are at high risk for mumps infection should consider immunization with 2 doses of MMR vaccine. For females of childbearing age, rubella immunity should be determined. If there is no evidence of immunity, females who are not should be vaccinated. If there is no evidence of immunity, females who are should delay immunization until after . Unvaccinated health care workers born before 1955 who lack laboratory evidence of measles, mumps, or rubella immunity or laboratory confirmation of disease should consider measles and mumps immunization with 2 doses of MMR vaccine or rubella immunization with 1 dose of MMR vaccine. Pneumococcal 13-valent conjugate (PCV13) vaccine. When indicated, a person who is uncertain of her immunization history and has no record of immunization should receive the PCV13 vaccine. An adult aged 19 years or older who has certain medical conditions and has not been previously immunized should receive 1 dose of PCV13 vaccine. This PCV13 should be followed with a dose of pneumococcal polysaccharide (PPSV23) vaccine. The PPSV23 vaccine dose should be obtained at least 8 weeks after the dose of PCV13 vaccine. An adult aged 19 years or older who has certain medical conditions and previously received 1 or more doses of PPSV23 vaccine should receive 1 dose of PCV13. The PCV13 vaccine dose should be obtained 1 or more years after the last PPSV23 vaccine dose. Pneumococcal polysaccharide (PPSV23) vaccine. When PCV13 is also indicated , PCV13 should be obtained first. All adults aged 65 years and older should be immunized. An adult younger than age 65 years who has certain medical conditions should be immunized. Any person who resides in a custodial or long -term care facility should be immunized. An adult smoker should be immunized. People with an immunocompromised condition and certain other conditions should receive both PCV13 and PPSV23 vaccines. People with human immunodeficiency virus (HIV) infection should be immunized as soon as possible after diagnosis. Immunization during chemotherapy or radiation therapy should be avoided. Routine use of PPSV23 vaccine is not recommended for [place] Indians, [place] Natives, or people younger than 65 years unless there are medical conditions that require PPSV23 vaccine. When indicated, people who have unknown immunization and have no record of immunization should receive PPSV23 vaccine. One-time revaccination 5 years after the first dose of PPSV23 is recommended for people aged 1964 years who have chronic kidney failure, nephrotic syndrome, asplenia, or immunocompromised conditions. People who received 12 doses of PPSV23 before age 65 years should receive another dose of PPSV23 vaccine at age 65 years or later if at least 5 years have passed since the previous dose. Doses of PPSV23 are not needed for people immunized with PPSV23 at or after age 65 years. Meningococcal vaccine. Adults with asplenia or persistent complement component deficiencies should receive 2 doses of quadrivalent meningococcal conjugate (MenACWY-D) vaccine. The doses should be obtained at least 2 months apart. Microbiologists working with certain meningococcal bacteria, recruits, people at risk during an outbreak, and people who travel to or live in countries with a high rate of meningitis should be immunized. A first-year college student up through age 21 years who is living in a residence mishra should receive a dose if she did not receive a dose on or after her 16th birthday. Adults who have certain high-risk conditions should receive one or more doses of vaccine. Hepatitis A vaccine. Adults who wish to be protected from this disease, have certain high-risk conditions, work with hepatitis A-infected animals, work in hepatitis A research labs, or travel to or work in countries with a high rate of hepatitis A should be immunized. Adults who were previously unvaccinated and who anticipate close contact with an international adoptee during the first 60 days after arrival in the [place] from a country with a high rate of hepatitis A should be immunized. Hepatitis B vaccine. Adults who wish to be protected from this disease, have certain high-risk conditions, may be exposed to blood or other infectious body fluids, are household contacts or sex partners of hepatitis B positive people, are clients or workers in certain care facilities, or travel to or work in countries with a high rate of hepatitis B should be immunized. Haemophilus influenzae type b (Hib) vaccine. A previously unvaccinated person with asplenia or sickle cell disease or having a scheduled splenectomy should receive 1 dose of Hib vaccine. Regardless of previous immunization, a recipient of a hematopoietic stem cell transplant should receive a 3-dose series 612 months after her successful transplant. Hib vaccine is not recommended for adults with HIV infection. Preventive Services / Frequency Ages 19 to 39 years Blood pressure check. / Every 1 to 2 years. Lipid and cholesterol check. / Every 5 years beginning at age 20. Clinical breast exam. / Every 3 years for women in their 20s and 30s. BRCA-related cancer risk assessment. / For women who have family members with a BRCA-related cancer (breast, ovarian, tubal, or peritoneal cancers). Pap test. / Every 2 years from ages 21 through 29. Every 3 years starting at age 30 through age 65 or 70 with a history of 3 consecutive normal Pap tests. HPV screening. / Every 3 years from ages 30 through ages 65 to 70 with a history of 3 consecutive normal Pap tests. Hepatitis C blood test. / For any individual with known risks for hepatitis C. Skin self-exam. / Monthly. Influenza vaccine. / Every year. Tetanus, diphtheria, and acellular pertussis (Tdap, Td) vaccine. / Consult your health care provider. women should receive 1 dose of Tdap vaccine during each . 1 dose of Td every 10 years. Varicella vaccine. / Consult your health care provider. females who do not have evidence of immunity should receive the first dose after . HPV vaccine. / 3 doses over 6 months, if 26 and younger. The vaccine is not recommended for use in females. However, testing is not needed before receiving a dose. Measles, mumps, rubella (MMR) vaccine. / You need at least 1 dose of MMR if you were born in 1957 or later. You may also need a 2nd dose. For females of childbearing age, rubella immunity should be determined. If there is no evidence of immunity, females who are not should be vaccinated. If there is no evidence of immunity, females who are should delay immunization until after . Pneumococcal 13-valent conjugate (PCV13) vaccine. / Consult your health care provider. Pneumococcal polysaccharide (PPSV23) vaccine. / 1 to 2 doses if you smoke cigarettes or if you have certain conditions. Meningococcal vaccine. / 1 dose if you are age 19 to 21 years and a first -year college student living in a residence mishra, or have one of several medical conditions, you need to get vaccinated against meningococcal disease. You may also need additional booster doses. Hepatitis A vaccine. / Consult your health care provider. Hepatitis B vaccine. / Consult your health care provider. Haemophilus influenzae type b (Hib) vaccine. / Consult your health care provider. Ages 40 to 64 years Blood pressure check. / Every 1 to 2 years. Lipid and cholesterol check. / Every 5 years beginning at age 20 years. Lung cancer screening. / Every year if you are aged 5580 years and have a [id number] history of smoking and currently smoke or have quit within the past 15 years. Yearly screening is stopped once you have quit smoking for at least 15 years or develop a health problem that would prevent you from having lung cancer treatment. Clinical breast exam. / Every year after age 40 years. BRCA-related cancer risk assessment. / For women who have family members with a BRCA-related cancer (breast, ovarian, tubal, or peritoneal cancers). Mammogram. / Every year beginning at age 40 years and continuing for as long as you are in good health. Consult with your health care provider. Pap test. / Every 3 years starting at age 30 years through age 65 or 70 years with a history of 3 consecutive normal Pap tests. HPV screening. / Every 3 years from ages 30 years through ages 65 to 70 years with a history of 3 consecutive normal Pap tests. Fecal occult blood test (FOBT) of stool. / Every year beginning at age 50 years and continuing until age 75 years. You may not need to do this test if you get a colonoscopy every 10 years. Flexible sigmoidoscopy or colonoscopy. / Every 5 years for a flexible sigmoidoscopy or every 10 years for a colonoscopy beginning at age 50 years and continuing until age 75 years. Hepatitis C blood test. / For all people born from 1945 through 1965 and any individual with known risks for hepatitis C. Skin self-exam. / Monthly. Influenza vaccine. / Every year. Tetanus, diphtheria, and acellular pertussis (Tdap/Td) vaccine. / Consult your health care provider. women should receive 1 dose of Tdap vaccine during each . 1 dose of Td every 10 years. Varicella vaccine. / Consult your health care provider. females who do not have evidence of immunity should receive the first dose after . Zoster vaccine. / 1 dose for adults aged 60 years or older. Measles, mumps, rubella (MMR) vaccine. / You need at least 1 dose of MMR if you were born in 1957 or later. You may also need a 2nd dose. For females of childbearing age, rubella immunity should be determined. If there is no evidence of immunity, females who are not should be vaccinated. If there is no evidence of immunity, females who are should delay immunization until after . Pneumococcal 13-valent conjugate (PCV13) vaccine. / Consult your health care provider. Pneumococcal polysaccharide (PPSV23) vaccine. / 1 to 2 doses if you smoke cigarettes or if you have certain conditions. Meningococcal vaccine. / Consult your health care provider. Hepatitis A vaccine. / Consult your health care provider. Hepatitis B vaccine. / Consult your health care provider. Haemophilus influenzae type b (Hib) vaccine. / Consult your health care provider. Ages 65 years and over Blood pressure check. / Every 1 to 2 years. Lipid and cholesterol check. / Every 5 years beginning at age 20 years. Lung cancer screening. / Every year if you are aged 5580 years and have a [id number] history of smoking and currently smoke or have quit within the past 15 years. Yearly screening is stopped once you have quit smoking for at least 15 years or develop a health problem that would prevent you from having lung cancer treatment. Clinical breast exam. / Every year after age 40 years. BRCA-related cancer risk assessment. / For women who have family members with a BRCA-related cancer (breast, ovarian, tubal, or peritoneal cancers). Mammogram. / Every year beginning at age 40 years and continuing for as long as you are in good health. Consult with your health care provider. Pap test. / Every 3 years starting at age 30 years through age 65 or 70 years with 3 consecutive normal Pap tests. Testing can be stopped between 65 and 70 years with 3 consecutive normal Pap tests and no abnormal Pap or HPV tests in the past 10 years. HPV screening. / Every 3 years from ages 30 years through ages 65 or 70 years with a history of 3 consecutive normal Pap tests. Testing can be stopped between 65 and 70 years with 3 consecutive normal Pap tests and no abnormal Pap or HPV tests in the past 10 years. Fecal occult blood test (FOBT) of stool. / Every year beginning at age 50 years and continuing until age 75 years. You may not need to do this test if you get a colonoscopy every 10 years. Flexible sigmoidoscopy or colonoscopy. / Every 5 years for a flexible sigmoidoscopy or every 10 years for a colonoscopy beginning at age 50 years and continuing until age 75 years. Hepatitis C blood test. / For all people born from 1945 through 1965 and any individual with known risks for hepatitis C. Osteoporosis screening. / A one-time screening for women ages 65 years and over and women at risk for fractures or osteoporosis. Skin self-exam. / Monthly. Influenza vaccine. / Every year. Tetanus, diphtheria, and acellular pertussis (Tdap/Td) vaccine. / 1 dose of Td every 10 years. Varicella vaccine. / Consult your health care provider. Zoster vaccine. / 1 dose for adults aged 60 years or older. Pneumococcal 13-valent conjugate (PCV13) vaccine. / Consult your health care provider. Pneumococcal polysaccharide (PPSV23) vaccine. / 1 dose for all adults aged 65 years and older. Meningococcal vaccine. / Consult your health care provider. Hepatitis A vaccine. / Consult your health care provider. Hepatitis B vaccine. / Consult your health care provider. Haemophilus influenzae type b (Hib) vaccine. / Consult your health care provider. Family history and personal history of risk and conditions may change your health care provider's recommendations. Document Released: 12/10/2002 Document Revised: 02/28/2015 Document Reviewed: [facility] Patient Information [facility]. This information is not intended to replace advice given to you by your health care provider. Make sure you discuss any questions you have with your health care provider. Obstetrics and Gynecology Hyperglycemia Hyperglycemia occurs when the glucose (sugar) in your blood is too high. Hyperglycemia can happen for many reasons, but it most often happens to people who do not know they have diabetes or are not managing their diabetes properly. CAUSES Whether you have diabetes or not, there are other causes of hyperglycemia. Hyperglycemia can occur when you have diabetes, but it can also occur in other situations that you might not be as aware of, such as: Diabetes If you have diabetes and are having problems controlling your blood glucose , hyperglycemia could occur because of some of the following reasons: Not following your meal plan. Not taking your diabetes medications or not taking it properly. Exercising less or doing less activity than you normally do. Being sick. Pre-diabetes This cannot be ignored. Before people develop Type 2 diabetes, they almost always have "pre-diabetes." This is when your blood glucose levels are higher than normal, but not yet high enough to be diagnosed as diabetes. Research has shown that some long-term damage to the body, especially the heart and circulatory system, may already be occurring during pre-diabetes. If you take action to manage your blood glucose when you have pre-diabetes, you may delay or prevent Type 2 diabetes from developing. Stress If you have diabetes, you may be "diet" controlled or on oral medications or insulin to control your diabetes. However, you may find that your blood glucose is higher than usual in the hospital whether you have diabetes or not. This is often referred to as "stress hyperglycemia." Stress can elevate your blood glucose. This happens because of hormones put out by the body during times of stress. If stress has been the cause of your high blood glucose, it can be followed regularly by your caregiver. That way he/she can make sure your hyperglycemia does not continue to get worse or progress to diabetes. Steroids Steroids are medications that act on the infection fighting system (immune system) to block inflammation or infection. One side effect can be a rise in blood glucose. Most people can produce enough extra insulin to allow for this rise, but for those who cannot, steroids make blood glucose levels go even higher. It is not unusual for steroid treatments to "uncover" diabetes that is developing. It is not always possible to determine if the hyperglycemia will go away after the steroids are stopped. A special blood test called an A1c is sometimes done to determine if your blood glucose was elevated before the steroids were started. SYMPTOMS Thirsty. Frequent urination. Dry mouth. Blurred vision. Tired or fatigue. Weakness. Sleepy. Tingling in feet or leg. DIAGNOSIS Diagnosis is made by monitoring blood glucose in one or all of the following ways: A1c test. This is a chemical found in your blood. Fingerstick blood glucose monitoring. Laboratory results. TREATMENT First, knowing the cause of the hyperglycemia is important before the hyperglycemia can be treated. Treatment may include, but is not be limited to: Education. Change or adjustment in medications. Change or adjustment in meal plan. Treatment for an illness, infection, etc. More frequent blood glucose monitoring. Change in exercise plan. Decreasing or stopping steroids. Lifestyle changes. HOME CARE INSTRUCTIONS Test your blood glucose as directed. Exercise regularly. Your caregiver will give you instructions about exercise. Pre-diabetes or diabetes which comes on with stress is helped by exercising. Eat wholesome, balanced meals. Eat often and at regular, fixed times. Your caregiver or road marker will give you a meal plan to guide your sugar intake. Being at an ideal weight is important. If needed, losing as little as 10 to 15 pounds may help improve blood glucose levels. SEEK MEDICAL CARE IF: You have questions about medicine, activity, or diet. You continue to have symptoms (problems such as increased thirst, urination , or weight gain). SEEK IMMEDIATE MEDICAL CARE IF: You are vomiting or have diarrhea. Your breath smells fruity. You are breathing faster or slower. You are very sleepy or incoherent. You have numbness, tingling, or pain in your feet or hands. You have chest pain. Your symptoms get worse even though you have been following your caregiver' s orders. If you have any other questions or concerns. Document Released: 04/09/2002 Document Revised: 01/05/2013 Document Reviewed: [employer] Patient Information 2015 [employer] [facility]. This information is not intended to replace advice given to you by your health care provider. Make sure you discuss any questions you have with your health care provider. No follow up information was provided. Extracted from: Title: Female Physical Author: Tobin Manzanares MD Date: 08/15/15 Impression and Plan Diagnosis Benign hypertension ([id number] I10, Working, Medical). GERD (gastroesophageal reflux disease) (VCV14-DH K21.9, Working, Medical). Fatigue (KHY65-SQ R53.83, Working, Medical). Snoring (ZPU35-BF R06.83, Working, Medical). Left low back pain (TMC53-WY M54.5, Working, Medical). High cholesterol (EVB63-UN E78.0, Working, Medical). Need for influenza vaccination ([id number] Z23, Working, Medical). Impaired fasting blood sugar (YHV25-JC R73.01, Working, Medical). Plan: 1) Wear a bicycle helmet. 2) Continue your present meds. 3) Check your BPs. 4) Continue heatlhy diet and daily exercise. 5) Finish your PT. 6) Get a colonoscopy at the end of October. 7) Fasting lab today. 8) Flu shot and hepatitis A vaccine #1 today. May get the second one in 6 months., Medicare screening breast and pelvic exam done today.. Orders Orders (Selected) Outpatient Orders Ordered Office Visit Level 5 Est 52599: Pelvis and Breast exam- with or without exam G0101: hepatitis A adult vaccine 1440 units/mL preservative free intramuscular suspension: 1 mL, IntraMuscular, Once influenza virus vaccine, inactivated: 0.5 mL, IntraMuscular, Once Future (On Hold) CBC w/ Differential: CMP: Fasting Lipid Profile: Hgb A1c: Routine Urinalysis: . Dx/Order Association Plan: Diagnosis: Benign hypertension Comment: Ordered: Office Visit Level 5 Est 23276; 08/15/15 9:37:00 CDT, Benign hypertension | Fatigue | GERD (gastroesophageal reflux disease) | High cholesterol Diagnosis: Fatigue Comment: Ordered: Office Visit Level 5 Est 28884; 08/15/15 9:37:00 CDT, Benign hypertension | Fatigue | GERD (gastroesophageal reflux disease) | High cholesterol Diagnosis: GERD (gastroesophageal reflux disease) Comment: Ordered: Office Visit Level 5 Est 37356; 08/15/15 9:37:00 CDT, Benign hypertension | Fatigue | GERD (gastroesophageal reflux disease) | High cholesterol Diagnosis: High cholesterol Comment: Ordered: Office Visit Level 5 Est 34709; 08/15/15 9:37:00 CDT, Benign hypertension | Fatigue | GERD (gastroesophageal reflux disease) | High cholesterol Diagnosis: Impaired fasting blood sugar Comment: Diagnosis: Left low back pain Comment: Diagnosis: Need for influenza vaccination Comment: Ordered: hepatitis A adult vaccine 1440 units/mL preservative free intramuscular suspension; 1 mL, IntraMuscular, Once, First Dose: 08/15/15 10:00:00 CDT, Stop Date: 08/15/15 10:00:00 CDT, Form: Vial influenza virus vaccine, inactivated; 0.5 mL, IntraMuscular, Once, First Dose: 08/15/15 9:27:00 CDT, Stop Date: 08/15/15 9:27: 00 CDT Diagnosis: Snoring Comment: Diagnosis: Visit for pelvic exam Comment: Ordered: Pelvis and Breast exam- with or without exam G0101; 08/15 9:45:00 CDT, 1, Visit for pelvic exam Diagnosis: Impaired fasting blood sugar Comment: Diagnosis: Benign hypertension Comment: Diagnosis: Benign hypertension Comment: Diagnosis: High cholesterol Comment: Diagnosis: Benign hypertension Comment: Additional Orders: Comment: Ordered: [place] 5 mg-325 mg oral tablet,1 tabs, Oral, Daily, as needed for back, neck and joint pain, 0 Refill(s) End of Orders .
--- OUTSIDE RECORDS SUMMARY | 2017-03-08 09:04 | XMS REPORT | Referral Summary ---
Author Author [facility] Organization [facility] Address Unknown Phone Unavailable Care Team Providers Care Shafting Cleaner Name Role Phone Betsy Manzanares Primary Care Physician [phone] Encounter Date(s): 06/08/15 - 06/08/15 [facility] [address] [place] [id number] Discharge Diagnosis: Hypercholesterolemia Discharge Disposition: 01-Home or [...] BEDTIME, # 30 Each, eRx: Pharmacy - [facility], TAKE ONE (1) TABLET(S) DAILY AT BEDTIME [...] days, # 90 tabs, 3 Refill(s), Pharmacy: [facility], 1 tabs Oral Daily,x90 days,PRN:as needed for allergy symptoms Start Date: 12/22/14 Stop Date: 12/17/15 Status: Ordered gabapentin 100 mg oral capsule 1 caps, Oral, BID, # 180 caps, 3 Refill(s), Pharmacy: [facility], 1 caps Oral BID Start Date: 02/14/15 Status: Ordered levothyroxine 88 mcg (0.088 mg) oral tablet 88 mcg 1 tabs, Oral, Daily, per Dr. Manzanares, # 30 tabs, 0 Refill(s) Start Date: 08/25/15 Status: Ordered [place] 5 mg-325 mg oral tablet 1 tabs, Oral, Daily, as needed for back, neck and joint pain, 0 Refill(s) Start Date: 08/15/15 Status: Ordered omeprazole 20 mg oral delayed release capsule 20 mg 1 caps, Oral, Daily, # 90 caps, 1 Refill(s), Pharmacy: [facility], 1 caps Oral Daily Start Date: 06/13/15 Status: Ordered potassium chloride 10 mEq oral tablet, extended release See Instructions, TAKE ONE (1) TABLET(S) DAILY, # 90 Each, eRx: Pharmacy - [facility], TAKE ONE (1) TABLET(S) DAILY Start Date: 08/05/15 Status: Ordered Systane Balance 1 drops, Eye-Both, BID, as needed for dry eyes, 0 Refill(s) Start Date: 04/01/14 Status: Ordered terbinafine 250 mg oral tablet See Instructions, Take 1 tablet daily for 7 out of every 28 days for one year. , # 21 tabs, eRx: [facility], Take 1 tablet daily for 7 out of every 28 days for one year. Start Date: 04/27/15 Status: Ordered terbinafine 250 mg oral tablet See Instructions, 1 tabs daily for 7 out of 28 days, for one year, # 30 tabs, 1 Refill(s), Pharmacy: [facility], 1 tabs daily for 7 out of [...] and esophagus. TREATMENT Your caregiver may recommend [id number] or prescription medicines to help decrease acid [...] mint flavorings. Garlic and onions. Spicy foods. [place] fruits, such as oranges, emmy, or limes. [...] Extra pillows will not help. Only take [id number] or prescription medicines for pain, discomfort, or [...] Released: 07/24/2006 Document Revised: 01/05/2013 Document Reviewed: [facility] Patient Information 2015 [facility], [facility]. This information is not intended to replace [...] Orders Ordered Office Visit Level 4 Est 66151: Vitamin B12 Level: . Dx/Order Association Plan: Diagnosis: Benign hypertension Comment: Ordered: Office Visit Level 4 Est 76338; 06/08/15 11:15:00 CDT, Cervical spinal stenosis | Fatigue | Benign hypertension | Hypercholesterolemia | GERD (gastroesophageal reflux disease) Diagnosis: Cervical spinal stenosis Comment: Ordered: Office Visit Level 4 Est [id number]; 06/08/15 11:15:00 CDT, Cervical spinal stenosis | Fatigue | Benign hypertension | Hypercholesterolemia | GERD (gastroesophageal reflux disease) Diagnosis: Fatigue Comment: Ordered: Vitamin B12 Level; Blood, Routine Collect, 06/08/15 11:16 :00 CDT, Once, Stop date 06/08/15 11:16:00 CDT, Lab Collect, Fatigue Office Visit Level 4 Est 40926; 06/08/15 11:15:00 CDT, Cervical spinal stenosis | Fatigue | Benign hypertension | Hypercholesterolemia | GERD (gastroesophageal reflux disease) Diagnosis: GERD (gastroesophageal reflux disease) Comment: Ordered: Office Visit Level 4 Est 29502; 06/08/15 11:15:00 CDT, Cervical spinal stenosis | Fatigue | Benign hypertension | Hypercholesterolemia | GERD (gastroesophageal reflux disease) Diagnosis: Hypercholesterolemia Comment: Ordered: Office Visit Level 4 Est 64149; 06/08/15 11:15:00 CDT, Cervical spinal stenosis | Fatigue | Benign hypertension | Hypercholesterolemia | GERD (gastroesophageal reflux disease) End of Orders ."
--- OUTSIDE RECORDS SUMMARY | 2017-03-08 09:04 | XMS REPORT | Referral Summary ---
Author Author [facility] Organization [facility] Address Unknown Phone Unavailable Care Team Providers Care Broadcast Traffic Coordinator Name Role Phone Betsy Manzanares Primary Care Physician [phone] Encounter VC Date(s): 05/22/16 - 05/22/16 [facility] [address] [place] [id number] Discharge Disposition: 01-Home or Self Care Attending Physician: Tobin Manzanares MD Admitting Physician: Tobin Manzanares MD Vital Signs Most recent to 1 oldest [Reference Range]: Temperature Tympanic 36.5 degC [36.6-38.1 degC] *LOW* (05/22/16 9:20 AM) Peripheral Pulse 72 bpm Rate [60-100 bpm] (05/22/16 9:20 AM) Blood Pressure 134/60 mmHg [90-140/60-90 mmHg] (05/22/16 9:20 AM) Problem List Condition Effective Dates Status [...] diarrhea Moderate Active iodine rash Moderate Active lisinopril cough Active Medications Aspir 81 81 mg, Oral, Daily, 0 Refill(s) Start Date: 02/01/15 Status: Ordered atorvastatin 10 mg oral tablet 10 mg 1 tabs, Oral, Bedtime (once a day), # 30 tabs, 10 Refill(s), Pharmacy[place] [facility] [place] [facility], 1 tabs Oral Bedtime (once a day) Start Date: 09/29/15 Status: Ordered Co-Q10 200 mg, Oral, Daily, 0 Refill(s) Start Date: 02/01/15 Status: Ordered levothyroxine 88 mcg (0.088 mg) oral tablet 88 mcg 1 tabs, Oral, Daily, # 90 tabs, 2 Refill(s), [place] [facility] [place], 1 tabs Oral Daily Start Date: 10/10/15 Status: Ordered losartan 25 mg oral tablet 25 mg 1 tabs, Oral, Daily, # 30 tabs, 11 Refill(s), Pharmacy: [facility]acy - [place], 1 tabs Oral Daily Start Date: 02/28/16 Status: Ordered [place] 5 mg-325 mg oral tablet 1 tabs, Oral, q6hr, as needed for pain, FOR NECK AND BACK PAIN, # 30 tabs, 0 Refill(s) Start Date: 12/09/15 Status: Ordered omeprazole 20 mg oral delayed release capsule See Instructions, 1 caps Oral Daily, # 90 caps, eRx: Pharmacy - [place], 1 caps Oral Daily Start Date: 12/09/15 Status: Ordered Vitamin D3 1000 intl units [...] Patient Education Author: Tobin Manzanares MD Date: 05/22 Family Medicine Acute Ankle Sprain With Phase I Rehab An acute ankle sprain is a partial or complete tear in one or more of the ligaments of the ankle due to traumatic injury. The severity of the injury depends on both the number of ligaments sprained and the grade of sprain. There are 3 grades of sprains. A grade 1 sprain is a mild sprain. There is a slight pull without obvious tearing. There is no loss of strength, and the muscle and ligament are the correct length. A grade 2 sprain is a moderate sprain. There is tearing of fibers within the substance of the ligament where it connects two bones or two cartilages. The length of the ligament is increased, and there is usually decreased strength. A grade 3 sprain is a complete rupture of the ligament and is uncommon. In addition to the grade of sprain, there are three types of ankle sprains. Lateral ankle sprains: This is a sprain of one or more of the three ligaments on the outer side (lateral) of the ankle. These are the most common sprains. Medial ankle sprains: There is one large triangular ligament of the inner side ( medial) of the ankle that is susceptible to injury. Medial ankle sprains are less common. Syndesmosis, "high ankle," sprains: The syndesmosis is the ligament that connects the two bones of the lower leg. Syndesmosis sprains usually only occur with very severe ankle sprains. SYMPTOMS Pain, tenderness, and swelling in the ankle, starting at the side of injury that may progress to the whole ankle and foot with time. "Pop" or tearing sensation at the time of injury. Bruising that may spread to the heel. Impaired ability to walk soon after injury. CAUSES Acute ankle sprains are caused by trauma placed on the ankle that temporarily forces or pries the anklebone (talus) out of its normal socket. Stretching or tearing of the ligaments that normally hold the joint in place (usually due to a twisting injury). RISK INCREASES WITH: Previous ankle sprain. Sports in which the foot may land awkwardly (i.e., basketball, volleyball , or soccer) or walking or running on uneven or rough surfaces. Shoes with inadequate support to prevent sideways motion when stress occurs. Poor strength and flexibility. Poor balance skills. Contact sports. PREVENTION Warm up and stretch properly before activity. Maintain physical fitness: Ankle and leg flexibility, muscle strength, and endurance. Cardiovascular fitness. Balance training activities. Use proper technique and have a assistant wrestling coach correct improper technique. Taping, protective strapping, bracing, or high-top tennis shoes may help prevent injury. Initially, tape is best; however, it loses most of its support function within 10 to 15 minutes. Wear proper-fitted protective shoes (High-top shoes with taping or bracing is more effective than either alone). Provide the ankle with support during sports and practice activities for 12 months following injury. PROGNOSIS If treated properly, ankle sprains can be expected to recover completely ; however, the length of recovery depends on the degree of injury. A grade 1 sprain usually heals enough in 5 to 7 days to allow modified activity and requires an average of 6 weeks to heal completely. A grade 2 sprain requires 6 to 10 weeks to heal completely. A grade 3 sprain requires 12 to 16 weeks to heal. A syndesmosis sprain often takes more than 3 months to heal. RELATED COMPLICATIONS Frequent recurrence of symptoms may result in a chronic problem. Appropriately addressing the problem the first time decreases the frequency of recurrence and optimizes healing time. Severity of the initial sprain does not predict the likelihood of later instability. Injury to other structures (bone, cartilage, or tendon). A chronically unstable or arthritic ankle joint is a possibility with repeated sprains. TREATMENT Treatment initially involves the use of ice, medication, and compression bandages to help reduce pain and inflammation. Ankle sprains are usually immobilized in a walking cast or boot to allow for healing. Crutches may be recommended to reduce pressure on the injury. After immobilization, strengthening and stretching exercises may be necessary to regain strength and a full range of motion. Surgery is rarely needed to treat ankle sprains. MEDICATION Nonsteroidal anti-inflammatory medications, such as aspirin and ibuprofen (do not take for the first 3 days after injury or within 7 days before surgery), or other minor pain relievers, such as acetaminophen, are often recommended. Take these as directed by your caregiver. Contact your caregiver immediately if any bleeding, stomach upset, or signs of an allergic reaction occur from these medications. Ointments applied to the skin may be helpful. Pain relievers may be prescribed as necessary by your caregiver. Do not take prescription pain medication for longer than 4 to 7 days. Use only as directed and only as much as you need. HEAT AND COLD Cold treatment (icing) is used to relieve pain and reduce inflammation for acute and chronic cases. Cold should be applied for 10 to 15 minutes every 2 to 3 hours for inflammation and pain and immediately after any activity that aggravates your symptoms. Use ice packs or an ice massage. Heat treatment may be used before performing stretching and strengthening activities prescribed by your caregiver. Use a heat pack or a warm soak. SEEK IMMEDIATE MEDICAL CARE IF: Pain, swelling, or bruising worsens despite treatment. You experience pain, numbness, discoloration, or coldness in the foot or toes. New, unexplained symptoms develop (drugs used in treatment may produce side effects.) EXERCISES PHASE I EXERCISES RANGE OF MOTION (ROM) AND STRETCHING EXERCISES - Ankle Sprain, Acute Phase I, Weeks 1 to 2 These exercises may help you when beginning to restore flexibility in your ankle. You will likely work on these exercises for the 1 to 2 weeks after your injury. Once your physician, physical therapist, or head athletic trainer/strength coach sees adequate progress, he or she will advance your exercises. While completing these exercises, remember: Restoring tissue flexibility helps normal motion to return to the joints. This allows healthier, less painful movement and activity. An effective stretch should be held for at least 30 seconds. A stretch should never be painful. You should only feel a gentle lengthening or release in the stretched tissue. RANGE OF MOTION - Dorsi/Plantar Flexion While sitting with your right / left knee straight, draw the top of your foot upwards by flexing your ankle. Then reverse the motion, pointing your toes downward. Hold each position for seconds. After completing your first set of exercises, repeat this exercise with your knee bent. Repeat times. Complete this exercise times per day. RANGE OF MOTION - Ankle Alphabet Imagine your right / left big toe is a pen. Keeping your hip and knee still, write out the entire alphabet with your "pen." Make the letters as large as you can without increasing any discomfort. Repeat times. Complete this exercise times per day. STRENGTHENING EXERCISES - Ankle Sprain, Acute -Phase I, Weeks 1 to 2 These exercises may help you when beginning to restore strength in your ankle. You will likely work on these exercises for 1 to 2 weeks after your injury. Once your physician, physical therapist, or head athletic trainer/strength coach sees adequate progress, he or she will advance your exercises. While completing these exercises, remember: Muscles can gain both the endurance and the strength needed for everyday activities through controlled exercises. Complete these exercises as instructed by your physician, physical therapist, or head athletic trainer/strength coach. Progress the resistance and repetitions only as guided. You may experience muscle soreness or fatigue, but the pain or discomfort you are trying to eliminate should never worsen during these exercises. If this pain does worsen, stop and make certain you are following the directions exactly. If the pain is still present after adjustments, discontinue the exercise until you can discuss the trouble with your clinician. STRENGTH - Dorsiflexors Secure a rubber exercise band/tubing to a fixed object (i.e., table, pole ) and loop the other end around your right / left foot. Sit on the floor facing the fixed object. The band/tubing should be slightly tense when your foot is relaxed. Slowly draw your foot back toward you using your ankle and toes. Hold this position for seconds. Slowly release the tension in the band and return your foot to the starting position. Repeat times. Complete this exercise times per day. STRENGTH - Plantar-flexors Sit with your right / left leg extended. Holding onto both ends of a rubber exercise band/tubing, loop it around the ball of your foot. Keep a slight tension in the band. Slowly push your toes away from you, pointing them downward. Hold this position for seconds. Return slowly, controlling the tension in the band/tubing. Repeat times. Complete this exercise times per day. STRENGTH - Ankle Eversion Secure one end of a rubber exercise band/tubing to a fixed object (table , pole). Loop the other end around your foot just before your toes. Place your fists between your knees. This will focus your strengthening at your ankle. Drawing the band/tubing across your opposite foot, slowly, pull your little toe out and up. Make sure the band/tubing is positioned to resist the entire motion. Hold this position for seconds. Have your muscles resist the band/tubing as it slowly pulls your foot back to the starting position. Repeat times. Complete this exercise times per day. STRENGTH - Ankle Inversion Secure one end of a rubber exercise band/tubing to a fixed object (table , pole). Loop the other end around your foot just before your toes. Place your fists between your knees. This will focus your strengthening at your ankle. Slowly, pull your big toe up and in, making sure the band/tubing is positioned to resist the entire motion. Hold this position for seconds. Have your muscles resist the band/tubing as it slowly pulls your foot back to the starting position. Repeat times. Complete this exercises times per day. STRENGTH - Towel Curls Sit in a chair positioned on a non-carpeted surface. Place your right / left foot on a towel, keeping your heel on the floor. Pull the towel toward your heel by only curling your toes. Keep your heel on the floor. If instructed by your physician, physical therapist, or head athletic trainer/strength coach , add weight to the end of the towel. Repeat times. Complete this exercise times per day. This information is not intended to replace advice given to you by your health care provider. Make sure you discuss any questions you have with your health care provider. Document Released: 05/15/2006 Document Revised: 11/04/2015 Document Reviewed: [facility] Patient Information 2016 [facility]. No follow up information was provided. Extracted from: Title: left ankle sprain, HTN Author: Tobin Manzanares MD Date: 05/22/16 Impression and Plan Diagnosis Benign hypertension ([id number] I10, Working, Medical). Combined hyperlipidemia (LSW34-GP E78.2, Working, Medical). Adult hypothyroidism (AEH68-LL E03.9, Working, Medical). Left ankle sprain ([id number] S93.402A, Working, Medical). Plan: 1) Wear your windy wrap on the left ankle. 2) Avoid causing pain to the ankle. 3) Continue your present meds. 4) See me for a physical in 3 months and as needed. 5) Schedule mammograms sometime.. Orders Orders (Selected) Outpatient Orders Ordered Office Visit Level 4 Est 34959: . Dx/Order Association Plan: Diagnosis: Adult hypothyroidism Comment: Ordered: Office Visit Level 4 Est 32604; 05/22/16 16:33:00 CDT, Left ankle sprain | Benign hypertension | Combined hyperlipidemia | Adult hypothyroidism Diagnosis: Benign hypertension Comment: Ordered: Office Visit Level 4 Est 51150; 05/22/16 16:33:00 CDT, Left ankle sprain | Benign hypertension | Combined hyperlipidemia | Adult hypothyroidism Diagnosis: Combined hyperlipidemia Comment: Ordered: Office Visit Level 4 Est 94596; 05/22/16 16:33:00 CDT, Left ankle sprain | Benign hypertension | Combined hyperlipidemia | Adult hypothyroidism Diagnosis: Left ankle sprain Comment: Ordered: Office Visit Level 4 Est 87595; 05/22/16 16:33:00 CDT, Left ankle sprain | Benign hypertension | Combined hyperlipidemia | Adult hypothyroidism End of Orders .
--- OUTSIDE RECORDS SUMMARY | 2017-03-08 09:05 | XMS REPORT | Continuity of Care Document ---
Author Author Jeffery BILLINGS, Enzo Pederson [facility] Ambulatory Address [address] [place] [address] Phone Care Team Providers Care Street Cleaning Equipment Operator Name Role Phone Tobin Manzanares PP Unavailable Payers Payer name Insurance type Covered libertarian ID Authorization(s) Unknown Problems Condition Effective Dates (start - stop) Clinical Status Other hammer toe (acquired) - *Chronic Hypertension - *Chronic Hypothyroid - *Controlled Osteoarthritis of finger - *Chronic Fibrocystic breast - *Chronic Fibroid uterus - Chronic Hypercholesterolemia - *Chronic Hypercholesterolemia - *Chronic Hypothyroid - *Chronic Fracture of fibula, distal, closed - *Acute Hypertension, Benign - *Chronic Allergic rhinitis, cause unspecified - *Chronic Low back pain - Intermittent Osteoarthritis of both knees - *Chronic Hyperlipidemia, NOS - *Chronic Hypertension, benign - *Chronic Hypothyroidism - *Chronic Myalgia - *Resolved Hypertension, Benign - *Chronic Closed fracture of left distal fibula - *Acute Chest pain at rest - Intermittent Closed fracture of left distal fibula - *Acute Other hammer toe (acquired) - *Chronic Influenza Vaccine - Other hammer toe (acquired) - *Chronic Enthesopathy of ankle and tarsus, unspecified - *Chronic Fracture of fibula, distal, left, closed - *Resolved Hypertension - *Chronic Hypercholesterolemia - *Chronic Low back pain - *Chronic Rash - *Acute Family History Family Member Diagnosis Age At Onset Status Maternal uncle (Unknown) CAD Yes Maternal grandmother (Unknown) CAD Yes Maternal uncle (Unknown) CAD Yes Sister (Unknown) Hypertension Yes Mother (Unknown) Cancer -breast Yes Maternal aunt (Unknown) CAD Yes Maternal uncle (Unknown) CAD Yes Sister (Unknown) Diabetes Yes Father (Unknown) Cancer -colon Yes Maternal grandfather (Unknown) Renal disease Yes Brother (Alive) healthy Yes Sister (Unknown) Hyperlipidemia Yes Maternal aunt (Unknown) Cancer Yes Paternal uncle (Unknown) Parkinson's disease Yes Social History Social History Element Description Quantity Unknown Allergies, Adverse Reactions, Alerts Substance Reaction Severity Status AMOXICILLIN diarrhea mild to moderate CEFIXIME diarrhea moderate IODINE rash mild to moderate Medications Medication Instructions Dosage Effective Dates (start - stop) Status Fish Oil 1,000 mg capsule take 1 Tablet by Oral route every day 0 2011 - Active ibuprofen 400 mg tablet take 1 tablet (400MG) by oral route every 4 - 6 hours as needed 400 MG - Active multivitamin tablet take 1 by Oral route every day 0 - Active fexofenadine 180 mg tablet TAKE ONE TABLET BY MOUTH DAILY NEEDED FOR ALLERGIES. - Active Lortab 5 mg-500 mg tablet Take 1 tablet by mouth at bedtime as needed. Jun - Active Livalo 2 mg tablet take 1/2 tablet (1 MG) by oral route every bedtime - Active levothyroxine 88 mcg tablet take 1 tablet (88MCG) by oral route every day 88 MCG - Active take 1 Teaspoon by Oral route NEEDED - Active Cholest Off 450 mg tablet take 1 Tablet by Oral route every DAY 2012 - Active Systane Balance 0.6 % eye drops apply 2 by Ophthalmic route NEEDED - Active fluticasone 50 mcg/actuation nasal spray,suspension inhale 2 spray (100MCG) by intranasal route NEEDED - Active Klor-Con M10 mEq tablet,extended release Take 1 tablet by mouth every day. - Active omeprazole 20 mg capsule,delayed release Take 1 capsule by mouth every day. - Active Ziac 5 mg-6.25 mg tablet Take 1/2 tab po daily - Active Immunizations Vaccine Date Status Comments Flu (split) (3 yrs or older) completed Flu (split) (3 yrs or older) completed Results Test Name Date and Time Measure Units Reference Range Abnormal Flag Comments Unknown Vital Signs Date / Time: Height Weight Pulse Rate Blood Pressure Temperature Unknown Procedures Procedure Date Unknown Encounters Encounter Location Date Patient Visit [facility] Patient Visit [facility] Patient Visit [facility] Patient Visit [facility] Patient Visit [facility] Patient Visit [facility] Patient [facility] Patient [facility] Patient [facility] Patient [facility] Patient [facility] Patient Visit [facility] Patient Visit [facility] Patient Visit [facility] Patient Visit [facility] Patient Visit [facility] Advance Directives Directive Effective Date Unknown
--- OUTSIDE RECORDS SUMMARY | 2017-03-08 09:05 | XMS REPORT | Referral Summary ---
Author Author [facility] Organization [facility] Address Unknown Phone Unavailable Care Team Providers Care Decision Support Manager Name Role Phone Betsy Manzanares Primary Care Physician [phone] Encounter VC Date(s): 06/08/15 - 06/08/15 [facility] [address] [place] [id number] Discharge Diagnosis: Hypercholesterolemia Discharge Disposition: 01-Home or [...] a day) Start Date: 09/29/15 Status: Ordered bisoprolol-hydrochlorothiazide 5 mg-6.25 mg oral tablet .5 mg, Oral, Daily, # 90 tabs, 2 Refill(s), [facility] [place] Start Date: 10/10/15 Status: Ordered Co-Q10 200 mg, Oral, Daily, 0 Refill(s) Start Date: 02/01/15 Status: Ordered levothyroxine 88 mcg (0.088 mg) oral tablet 88 mcg 1 tabs, Oral, Daily, # 90 tabs, 2 Refill(s), [facility] [facility] [place], 1 tabs Oral Daily Start Date: 10/10/15 Status: Ordered [place] 5 mg-325 mg oral tablet 1 tabs, Oral, q6hr, as needed for pain, FOR NECK AND BACK PAIN, # 30 tabs, 0 Refill(s) Start Date: 12/09/15 Status: Ordered omeprazole 20 mg oral delayed release capsule See Instructions, 1 caps Oral Daily, # 90 caps, eRx: Pharmacy - [facility], 1 caps Oral Daily Start Date: 12/09/15 Status: Ordered potassium chloride 10 mEq oral tablet, extended release 10 mEq 1 tabs, Oral, Daily, # 90 tabs, 2 Refill(s), [place] [facility] [place], 1 tabs Oral Daily Start Date: 10/10/15 Status: Ordered Systane Balance 1 drops, Eye-Both, [...] Block 11/17/15 Amputation, traumatic, toe2 2013 Cataract extraction3 2011 Colonoscopy --> NORMAL, repeat in 5 [...] and esophagus. TREATMENT Your caregiver may recommend swaj-nuu-nfteeov or prescription medicines to help decrease acid [...] mint flavorings. Garlic and onions. Spicy foods. [place] fruits, such as oranges, emmy, or limes. [...] Extra pillows will not help. Only take siqy-lys-iwvnkqo or prescription medicines for pain, discomfort, or [...] Released: 07/24/2006 Document Revised: 01/05/2013 Document Reviewed: [facility] Patient Information 2015 [employer]. This information is not intended to replace [...] Orders Ordered Office Visit Level 4 Est 22891: Vitamin B12 Level: . Dx/Order Association Plan: Diagnosis: Benign hypertension Comment: Ordered: Office Visit Level 4 Est 16081; 06/08/15 11:15:00 CDT, Cervical spinal stenosis | Fatigue | Benign hypertension | Hypercholesterolemia | GERD (gastroesophageal reflux disease) Diagnosis: Cervical spinal stenosis Comment: Ordered: Office Visit Level 4 Est 70635; 06/08/15 11:15:00 CDT, Cervical spinal stenosis | Fatigue | Benign hypertension | Hypercholesterolemia | GERD (gastroesophageal reflux disease) Diagnosis: Fatigue Comment: Ordered: Vitamin B12 Level; Blood, Routine Collect, 06/08/15 11:16 :00 CDT, Once, Stop date 06/08/15 11:16:00 CDT, Lab Collect, Fatigue Office Visit Level 4 Est 14029; 06/08/15 11:15:00 CDT, Cervical spinal stenosis | Fatigue | Benign hypertension | Hypercholesterolemia | GERD (gastroesophageal reflux disease) Diagnosis: GERD (gastroesophageal reflux disease) Comment: Ordered: Office Visit Level 4 Est 81749; 06/08/15 11:15:00 CDT, Cervical spinal stenosis | Fatigue | Benign hypertension | Hypercholesterolemia | GERD (gastroesophageal reflux disease) Diagnosis: Hypercholesterolemia Comment: Ordered: Office Visit Level 4 Est 53992; 06/08/15 11:15:00 CDT, Cervical spinal stenosis | Fatigue | Benign hypertension | Hypercholesterolemia | GERD (gastroesophageal reflux disease) End of Orders ."
--- OUTSIDE RECORDS SUMMARY | 2017-03-08 09:05 | XMS REPORT | Referral Summary ---
Author Author [facility] Organization [facility] Address Unknown Phone Unavailable Care Team Providers Care Journalism Intern Name Role Phone Betsy Manzanares Primary Care Physician [phone] Encounter VC Date(s): 12/01/15 - 12/01/15 [facility] [address] [place] [email or web address] Discharge Diagnosis: Cervicalgia Discharge Diagnosis: DDD (degenerative disc disease), cervical Discharge Diagnosis: Cervical spondylosis Discharge Diagnosis: Acquired spondylolisthesis Discharge Disposition: 01-Home or Self Care Attending Physician: Nikky Puckett PA-C Admitting Physician: Nikky Puckett PA-C Vital Signs Most recent to 1 oldest [Reference Range]: Blood Pressure 118/66 mmHg [90-140/60-90 mmHg] (12/01/15 9:19 AM) Problem List Condition Effective Dates Status [...] Cervicalgia(Confirme Active d) Onychomycosis(Confir Active med) Osteoarthritis - Active lower [...] day), # 30 tabs, 10 Refill(s), [facility] [place], 1 tabs Oral Bedtime (once a day) Start Date: 09/29/15 Status: Ordered bisoprolol-hydrochlorothiazide 5 mg-6.25 mg oral tablet .5 mg, Oral, Daily, # 90 tabs, 2 Refill(s), [facility] Start Date: 10/10/15 Status: Ordered Co-Q10 200 mg, Oral, Daily, 0 Refill(s) Start Date: 02/01/15 Status: Ordered fexofenadine 180 mg oral tablet 1 tabs, Oral, Daily, as needed for allergy symptoms, X 90 days, # 90 tabs, 3 Refill(s), Pharmacy: [facility], 1 tabs Oral Daily,x90 days,PRN:as needed for allergy symptoms Start Date: 12/22/14 Stop Date: 12/17/15 Status: Ordered levothyroxine 88 mcg (0.088 mg) oral tablet 88 mcg 1 tabs, Oral, Daily, # 90 tabs, 2 Refill(s), [facility] [place], 1 tabs Oral Daily Start Date: 10/10/15 Status: Ordered omeprazole 20 mg oral delayed release capsule 20 mg 1 caps, Oral, Daily, # 90 caps, 2 Refill(s), [facility] [place], 1 caps Oral Daily Start Date: 10/10/15 Status: Ordered potassium chloride 10 mEq oral tablet, extended release 10 mEq 1 tabs, Oral, Daily, # 90 tabs, 2 Refill(s), [facility] [place], 1 tabs Oral Daily Start Date: [...] Date Related Diagnosis Body Site Right C4-6 Medial Branch Block with 11/24/15 Differential Right C4-6 Medial Branch Block 11/17/15 Amputation, traumatic, toe1 2013 Cataract extraction2 2011 Colonoscopy --> NORMAL, repeat in 5 [...] smoker Assessment and Plan Extracted from: Title: Office Visit Note Author: Nikky Puckett PA-C Date: 12/01/15 Assessment/Plan Acquired spondylolisthesis Cervical spondylosis Cervicalgia DDD (degenerative disc disease), cervical I discussed the patient's plan of care with Dr. Nascimento. I also reviewed the patient's most recent cervicalMRI . According to this MRI the patient has grade 1 anterolisthesis of C4 and 5and C6 7with multiple levels of degenerative disc and facet arthropathy. She does have some stenosis, although clinicallyappears to continue having mechanical painand cervicogenic headaches. She recently pni5ohzby C4 to C6 medial branch blocks with significant relief. Dr. Nascimento recommends proceeding with right C4 to C6 radiofrequency ablation. The patient does understand the rationale for the procedure as well as possible complications including bleeding, infection, allergic reaction, nerve irritation or damage. The patient also understands other remote possible complications including paraplegia, quadriplegia, , stroke, and seizure. The patient voiced understanding and wishes to proceed. The patient requests a local anesthetic. The patient will follow-up in 4 weeksfollowing the injection, at which time we will considerworkup for radiofrequency of the upper cervicaljoints, if needed. If the patient fails to improve or worsening symptoms, they will follow-up sooner. The patient voiced understanding and agrees to the above plan. The above was in discussionwith Dr. Nascimento.
--- OUTSIDE RECORDS SUMMARY | 2017-03-08 09:05 | XMS REPORT | Referral Summary ---
Author Author [facility] Organization [facility] Address Unknown Phone Unavailable Care Team Providers Care Carpenter Assistant Installer Name Role Phone Betsy Manzanares Primary Care Physician [phone] Encounter VC Date(s): 08/15/15 - 08/15/15 [facility] [address] [place] [id number] Discharge Disposition: 01-Home or Self Care [...] DAILY AT BEDTIME, # 30 Each, eRx: [facility], TAKE ONE (1) TABLET(S) DAILY AT BEDTIME Start Date: 07/27/15 Status: Ordered Co-Q10 200 mg, Oral, Daily, 0 Refill(s) Start Date: 02/01/15 Status: Ordered fexofenadine 180 mg oral tablet 1 tabs, Oral, Daily, as needed for allergy symptoms, X 90 days, # 90 tabs, 3 Refill(s), Pharmacy: [facility], 1 tabs Oral Daily,x90 days,PRN:as needed for allergy symptoms Start Date: 12/22/14 Stop Date: 12/17/15 Status: Ordered gabapentin 100 mg oral capsule 1 caps, Oral, BID, # 180 caps, 3 Refill(s), Pharmacy: [facility], 1 caps Oral BID Start Date: 02/14/15 Status: Ordered [place] 5 mg-325 mg oral tablet 1 tabs, Oral, Daily, as needed for back, neck and joint pain, 0 Refill(s) Start Date: 08/15/15 Status: Ordered omeprazole 20 mg oral delayed release capsule 20 mg 1 caps, Oral, Daily, # 90 caps, 1 Refill(s), Pharmacy: [facility], 1 caps Oral Daily Start Date: 06/13/15 Status: Ordered potassium chloride 10 mEq oral tablet, extended release See Instructions, TAKE ONE (1) TABLET(S) DAILY, # 90 Each, [facility], TA[facility] ONE (1) TABLET(S) DAILY Start Date: 08/05/15 Status: Ordered Systane Balance 1 drops, Eye-Both, BID, as needed for dry eyes, 0 Refill(s) Start Date: 04/01/14 Status: Ordered terbinafine 250 mg oral tablet See Instructions, Take 1 tablet daily for 7 out of every 28 days for one year. , # 21 tabs, eRx: [facility], Take 1 tablet daily for 7 out of every 28 days for one year. Start Date: 04/27/15 Status: Ordered terbinafine 250 mg oral tablet See Instructions, 1 tabs daily for 7 out of 28 days, for one year, # 30 tabs, 1 Refill(s), Pharmacy: [facility], 1 tabs daily for 7 out of 28 days, for one year Start Date: 11/05/14 Status: Ordered Vitamin D3 1000 intl units oral tablet 1 tabs, Oral, Daily, # 30 tabs, 0 Refill(s) Start Date: 12/22/14 Status: Ordered Results Hematology Most recent to [...] 1.59 10*3 [0.80-3.30 10*3] (08/15/15 10:12 AM) [place] Absolute 0.50 10*3 [0.30-1.00 10*3] (08/15/15 10:12 [...] AM) Epithelial Cells 2-5 (08/15/15 10:20 AM) Immunizations Vaccine Date Refusal Reason tetanus/diphth/pertuss [...] Body Site Amputation, traumatic, toe1 2013 Cataract extraction2 2011 [...] Released: 11/21/2005 Document Revised: 01/05/2013 Document Reviewed: ExitCare Patient Information 2015 [employer] [facility]. This information is not intended to [...] Released: 07/09/2002 Document Revised: 02/28/2015 Document Reviewed: ExitCare Patient Information 2015 [employer]. This information is not intended to replace [...] and esophagus. TREATMENT Your caregiver may recommend uvmb-nbh-amojeif or prescription medicines to help decrease acid [...] mint flavorings. Garlic and onions. Spicy foods. [place] fruits, such as oranges, emmy, or limes. [...] Extra pillows will not help. Only take tggm-ibk-jaoywbg or prescription medicines for pain, discomfort, or [...] Released: 07/24/2006 Document Revised: 01/05/2013 Document Reviewed: [facility] Patient Information 2015 [facility] [employer] [facility]. This information is not intended to [...] exam and preventive care every 6 months. [place] your teeth twice a day and floss [...] for people who have at least a 82-bsln-ftac history of smoking and are a current [...] last dose. Immunization is preferred during the [id number] week of gestation. An adult who has [...] of PPSV23 vaccine is not recommended for [place] Indians, [place] Natives, or people younger than [...] are aged 5580 years and have a 58-glzd-ccfj history of smoking and currently smoke or [...] are aged 5580 years and have a 16-trgy-ddnf history of smoking and currently smoke or [...] Released: 12/10/2002 Document Revised: 02/28/2015 Document Reviewed: [facility] Patient Information 2015 [employer]. This information is not intended to replace [...] at regular, fixed times. Your caregiver or auditor will give you a meal plan to [...] Released: 04/09/2002 Document Revised: 01/05/2013 Document Reviewed: [facility] Patient Information 2015 [employer]. This information is not intended to replace advice given to you by your health care provider. Make sure you discuss any questions you have with your health care provider. No follow up information was provided. Extracted from: Title: Female Physical Author: Tobin Manzanares MD Date: 08/15/15 Impression and Plan Diagnosis Benign hypertension (CNN66-[id number] I10, Working, Medical). GERD (gastroesophageal reflux disease) (MOT55-WW K21.9, Working, Medical). Fatigue (BDZ91-QA R53.83, Working, Medical). Snoring (WMV04-VK R06.83, Working, Medical). Left low back pain (WBC91-EP M54.5, Working, Medical). High cholesterol (YTW34-DC E78.0, Working, Medical). Need for influenza vaccination (XJR26-LD Z23, Working, Medical). Impaired fasting blood sugar (IKP01-BV R73.01, Working, Medical). Plan: 1) Wear a [...] Orders Ordered Office Visit Level 5 Est 25474: Pelvis and Breast exam- with or without exam G0101: hepatitis A adult vaccine 1440 units/mL preservative free intramuscular suspension: 1 mL, IntraMuscular, Once influenza virus vaccine, inactivated: 0.5 mL, IntraMuscular, Once Future (On Hold) CBC w/ Differential: CMP: Fasting Lipid Profile: Hgb A1c: Routine Urinalysis: . Dx/Order Association Plan: Diagnosis: Benign hypertension Comment: Ordered: Office Visit Level 5 Est 09309; 08/15/15 9:37:00 CDT, Benign hypertension | Fatigue | GERD (gastroesophageal reflux disease) | High cholesterol Diagnosis: Fatigue Comment: Ordered: Office Visit Level 5 Est 57875; 08/15/15 9:37:00 CDT, Benign hypertension | Fatigue | GERD (gastroesophageal reflux disease) | High cholesterol Diagnosis: GERD (gastroesophageal reflux disease) Comment: Ordered: Office Visit Level 5 Est 73600; 08/15/15 9:37:00 CDT, Benign hypertension | Fatigue | GERD (gastroesophageal reflux disease) | High cholesterol Diagnosis: High cholesterol Comment: Ordered: Office Visit Level 5 Est 27023; 08/15/15 9:37:00 CDT, Benign hypertension | Fatigue [...] Benign hypertension Comment: Additional Orders: Comment: Ordered: [place] 5 mg-325 mg oral tablet,1 tabs, Oral, Daily, as needed for back, neck and joint pain, 0 Refill(s) End of Orders .
--- OUTSIDE RECORDS SUMMARY | 2017-03-08 09:05 | XMS REPORT | Referral Summary ---
Author Author [facility] Organization [facility] Address Unknown Phone Unavailable Care Team Providers Care Promotions Director Name Role Phone Betsy Manzanares Primary Care Physician [phone] Encounter VC Date(s): 12/14/15 - 12/14/15 [facility] [address] [place] [address] Discharge Diagnosis: Cervical spondylosis Discharge Disposition: 01-Home or Self Care Attending Physician: eJan Nascimento MD Admitting Physician: Jean Nascimento MD Referring Physician: Tobin Manzanares MD Vital Signs Most recent to 1 oldest [Reference Range]: Peripheral Pulse 55 bpm Rate [60-100 bpm] *LOW* (12/14/15 9:42 AM) Respiratory Rate 12 br/min [14-20 br/min] *LOW* (12/14/15 9:42 AM) Blood Pressure 143/74 mmHg [90-140/60-90 mmHg] *HI* (12/14/15 9:42 AM) SpO2 98 % (12/14/15 9:42 AM) Problem List Condition Effective Dates Status [...] day), # 30 tabs, 10 Refill(s), [facility]: [facility], 1 tabs Oral Bedtime (once a day) Start Date: 09/29/15 Status: Ordered bisoprolol-hydrochlorothiazide 5 mg-6.25 mg oral tablet .5 mg, Oral, Daily, # 90 tabs, 2 Refill(s), [facility] Start Date: 10/10/15 Status: Ordered Co-Q10 200 mg, Oral, Daily, 0 Refill(s) Start Date: 02/01/15 Status: Ordered fexofenadine 180 mg oral tablet 1 tabs, Oral, Daily, as needed for allergy symptoms, X 90 days, # 90 tabs, 3 Refill(s), Pharmacy: [facility], 1 tabs Oral Daily,x90 days,PRN:as needed for allergy symptoms Start Date: 12/22/14 Stop Date: 12/17/15 Status: Ordered levothyroxine 88 mcg (0.088 mg) oral tablet 88 mcg 1 tabs, Oral, Daily, # 90 tabs, 2 Refill(s), [facility], 1 tabs Oral Daily Start Date: 10/10/15 Status: Ordered [place] 5 mg-325 mg oral tablet 1 tabs, Oral, q6hr, as needed for pain, FOR NECK AND BACK PAIN, # 30 tabs, 0 Refill(s) Start Date: 12/09/15 Status: Ordered omeprazole 20 mg oral delayed release capsule See Instructions, 1 caps Oral Daily, # 90 caps, eRx: Pharm[facility] - [place], 1 caps Oral Daily Start Date: 12/09/15 Status: Ordered potassium chloride 10 mEq oral tablet, extended release 10 mEq 1 tabs, Oral, Daily, # 90 tabs, 2 Refill(s), [place] [facility] [place], 1 tabs Oral Daily [...] Procedures Procedure Date Related Diagnosis Body Site Destruction by neurolytic agent, 12/14/15 paravertebral facet joint nerve(s), with imaging guidance (fluoroscopy or CT); cervical or thoracic, each additional facet joint (List separately in addition to code for primary procedure).. Destruction by neurolytic agent, 12/14/15 paravertebral facet joint nerve(s), with imaging guidance (fluoroscopy or CT); cervical or thoracic, single facet joint Right C4-6 Radiofrequency 12/14/15 Colonoscopy normal1 12/08/15 Right C4-6 Medial Branch Block with 11/24/15 Differential Right C4-6 Medial Branch Block 11/17/15 Amputation, traumatic, toe2 2013 Cataract extraction3 2011 Colonoscopy --> NORMAL, repeat in 5 years 2011 for positive family history of Colon Ca cysto and dilatation 2006 Colonoscopy 2005 Colonoscopy and EGD 1999 Esophagogastroduodenoscopy [EGD] with closed 2000 biopsy cysto and dilatation 1995 cysto and diatation (see NextGen) 1992 Umbilical hernia repair 1991 Biopsy of (RT) Breast (Benign)1985 Dilation and curettage 1973 Cystoscopy/Brittoner Vaporization and Dil 1hyperplastic polyp, sigmoid diverticulosis, family history colon cancer in her father, repeat in 5 years 2right 2nd toe, due to hammertoe condition. 3left eye only 4biopsy Social History Social History Type Response Smoking Status Never smoker Assessment and Plan No data available for this section
--- OUTSIDE RECORDS SUMMARY | 2017-03-08 09:05 | XMS REPORT | Referral Summary ---
Author Author [facility] Organization [facility] Address Unknown Phone Unavailable Care Team Providers Care Pharmacy Aide Name Role Phone Betsy Manzanares Primary Care Physician [phone] Encounter VC Date(s): 11/24/15 - 11/24/15 [facility] [address] [place], [place] [address] Discharge Diagnosis: Cervical spondylosis Discharge Disposition: 01-Home or Self Care Attending Physician: Jean Nascimento MD Admitting Physician: Jean Nascimento MD Vital Signs Most recent to 1 oldest [Reference Range]: Apical Heart Rate 59 bpm [60-100 bpm] *LOW* (11/24/15 10:02 AM) Respiratory Rate 16 br/min [14-20 br/min] (11/24/15 10:02 AM) Blood Pressure 149/99 mmHg [90-140/60-90 mmHg] *HI* (11/24/15 10:02 AM) SpO2 99 % (11/24/15 10:02 AM) Problem List Condition Effective Dates Status [...] day), # 30 tabs, 10 Refill(s), [facility] [place], 1 tabs Oral Bedtime (once a day) Start Date: 09/29/15 Status: Ordered bisoprolol-hydrochlorothiazide 5 mg-6.25 mg oral tablet .5 mg, Oral, Daily, # 90 tabs, 2 Refill(s), [facility] Start Date: 10/10/15 Status: Ordered Co-Q10 200 mg, Oral, Daily, 0 Refill(s) Start Date: 02/01/15 Status: Ordered fexofenadine 180 mg oral tablet 1 tabs, Oral, Daily, as needed for allergy symptoms, X 90 days, # 90 tabs, 3 Refill(s), Pharmacy: [facility], 1 tabs Oral Daily,x90 days,PRN:as needed for allergy symptoms Start Date: 12/22/14 Stop Date: 12/17/15 Status: Ordered levothyroxine 88 mcg (0.088 mg) oral tablet 88 mcg 1 tabs, Oral, Daily, # 90 tabs, 2 Refill(s), [facility] [place], 1 tabs Oral Daily Start Date: 10/10/15 Status: Ordered omeprazole 20 mg oral delayed release capsule 20 mg 1 caps, Oral, Daily, # 90 caps, 2 Refill(s), [facility], [facility] caps Oral Daily Start Date: 10/10/15 Status: Ordered potassium chloride 10 mEq oral tablet, extended release 10 mEq 1 tabs, Oral, Daily, # 90 tabs, 2 Refill(s), [facility] [place], 1 tabs Oral Daily Start [...] Procedures Procedure Date Related Diagnosis Body Site Injection(s), diagnostic or therapeutic 11/24/15 agent, paravertebral facet (zygapophyseal) joint (or nerves innervating that joint) with image guidance (fluoroscopy or CT), cervical or thoracic; second level (List separately in addition to code for primary proced Injection(s), diagnostic or therapeutic 11/24/15 agent, paravertebral facet (zygapophyseal) joint (or nerves innervating that joint) with image guidance (fluoroscopy or CT), cervical or thoracic; single level.. Right C4-6 Medial Branch Block with 11/24/15 [...] Breast (Benign)3 1985 Dilation and curettage 1973 Cystoscopy/Teresa Vaporization and Dil 1right 2nd toe, due to hammertoe condition. 2left eye only 3biopsy Social History Social History Type Response Smoking Status Never smoker Assessment and Plan No data available for this section
--- OUTSIDE RECORDS SUMMARY | 2017-03-08 09:05 | XMS REPORT | Continuity of Care Document ---
Author Author Latricia Holbrook RN Ambulatory Address [address] [place] [id number] Phone Unavailable Care Team Providers Care Button And Buckle Maker Name Role Phone GlennaFilipe mejiahayden RUSSELL Unavailable Payers Payer name Insurance type Covered republican ID Authorization(s) Unknown Problems Condition Effective Dates (start - stop) Clinical Status Fracture of fibula, distal, left, closed - *Resolved Hypertension - *Chronic Hypercholesterolemia - *Chronic Low back pain - *Chronic Hypertension - *Chronic Hypothyroid - [...] fracture of left distal fibula - *Acute Influenza Vaccine - Rash - *Acute Family History Family Member [...] 2012 - Active Systane Balance 0.6 % Eye Drops apply 2 by Ophthalmic route NEEDED - Active fluticasone 50 mcg/actuation Nasal [place], Susp inhale 2 spray (100MCG) by intranasal route [...] Height Weight Pulse Rate Blood Pressure Temperature /10:45:00 67.00 in 180.00 lbs 128/78 mm[Hg] 98.2 F Procedures Procedure Date Unknown Encounters Encounter Location Date Patient Visit [facility] Patient [facility] Patient [facility] Patient Visit [facility] Patient Visit [facility] Patient [facility] Patient [facility] Patient [facility] Patient Visit [facility] Patient Visit [facility] Patient Visit [facility] Patient Visit [facility] Patient Visit [facility] Advance Directives Directive Effective Date Unknown
--- OUTSIDE RECORDS SUMMARY | 2017-03-08 09:05 | XMS REPORT | Referral Summary ---
Author Author [facility] Organization [facility] Address Unknown Phone Unavailable Care Team Providers Care Laboratory Miller Name Role Phone Betsy Manzanares Primary Care Physician [phone] Encounter Date(s): 06/08/15 - 06/08/15 [facility] [address] [place] [address] Discharge Diagnosis: Hypercholesterolemia Discharge Disposition: 01-Home or [...] BEDTIME, # 30 Each, eRx: Pharmacy - [facility], TAKE ONE (1) TABLET(S) DAILY AT [...] days, # 90 tabs, 3 Refill(s), Pharmacy: [facility], 1 tabs Oral Daily,x90 days,PRN:as needed for allergy symptoms Start Date: 12/22/14 Stop Date: 12/17/15 Status: Ordered gabapentin 100 mg oral capsule 1 caps, Oral, BID, # 180 caps, 3 Refill(s), Pharmacy: [facility], 1 caps Oral BID Start Date: 02/14/15 Status: Ordered levothyroxine 88 mcg (0.088 mg) oral tablet 88 mcg 1 tabs, Oral, Daily, per Dr. Manzanares, # 30 tabs, 0 Refill(s) Start Date: 08/25/15 Status: Ordered [place] 5 mg-325 mg oral tablet 1 tabs, Oral, Daily, as needed for back, neck and joint pain, 0 Refill(s) Start Date: 08/15/15 Status: Ordered omeprazole 20 mg oral delayed release capsule 20 mg 1 caps, Oral, Daily, # 90 caps, 1 Refill(s), Pharmacy: [facility]acy [facility] [place], 1 caps Oral Daily Start Date: 06/13/15 Status: Ordered potassium chloride 10 mEq oral tablet, extended release See Instructions, TAKE ONE (1) TABLET(S) DAILY, # 90 Each, eRx: Pharmacy - [facility], TAKE ONE (1) TABLET(S) DAILY Start Date: 08/05/15 Status: Ordered Systane Balance 1 drops, Eye-Both, BID, as needed for dry eyes, 0 Refill(s) Start Date: 04/01/14 Status: Ordered terbinafine 250 mg oral tablet See Instructions, Take 1 tablet daily for 7 out of every 28 days for one year. , # 21 tabs, eRx: [facility], Take 1 tablet daily for 7 out of every 28 days for one year. Start Date: 04/27/15 Status: Ordered terbinafine 250 mg oral tablet See Instructions, 1 tabs daily for 7 out of 28 days, for one year, # 30 tabs, 1 Refill(s), Pharmacy: [facility], 1 tabs daily for 7 out of [...] and esophagus. TREATMENT Your caregiver may recommend [id number]-[id number] or prescription medicines to help decrease acid [...] mint flavorings. Garlic and onions. Spicy foods. [place] fruits, such as oranges, emmy, or limes. [...] Extra pillows will not help. Only take daki-pki-jiojbzk or prescription medicines for pain, discomfort, or [...] Released: 07/24/2006 Document Revised: 01/05/2013 Document Reviewed: [facility] Patient Information 2015 [facility], [facility]. This information is not intended to replace [...] Orders Ordered Office Visit Level 4 Est 03693: Vitamin B12 Level: . Dx/Order Association Plan: Diagnosis: Benign hypertension Comment: Ordered: Office Visit Level 4 Est 10075; 06/08/15 11:15:00 CDT, Cervical spinal stenosis | Fatigue | Benign hypertension | Hypercholesterolemia | GERD (gastroesophageal reflux disease) Diagnosis: Cervical spinal stenosis Comment: Ordered: Office Visit Level 4 Est 03728; 06/08/15 11:15:00 CDT, Cervical spinal stenosis | Fatigue | Benign hypertension | Hypercholesterolemia | GERD (gastroesophageal reflux disease) Diagnosis: Fatigue Comment: Ordered: Vitamin B12 Level; Blood, Routine Collect, 06/08/15 11:16 :00 CDT, Once, Stop date 06/08/15 11:16:00 CDT, Lab Collect, Fatigue Office Visit Level 4 Est 53946; 06/08/15 11:15:00 CDT, Cervical spinal stenosis | Fatigue | Benign hypertension | Hypercholesterolemia | GERD (gastroesophageal reflux disease) Diagnosis: GERD (gastroesophageal reflux disease) Comment: Ordered: Office Visit Level 4 Est 36066; 06/08/15 11:15:00 CDT, Cervical spinal stenosis | Fatigue | Benign hypertension | Hypercholesterolemia | GERD (gastroesophageal reflux disease) Diagnosis: Hypercholesterolemia Comment: Ordered: Office Visit Level 4 Est 31878; 06/08/15 11:15:00 CDT, Cervical spinal stenosis | Fatigue | Benign hypertension | Hypercholesterolemia | GERD (gastroesophageal reflux disease) End of Orders ."
--- OUTSIDE RECORDS SUMMARY | 2017-03-08 09:06 | XMS REPORT | Referral Summary ---
Author Author [facility] Organization [facility] Address Unknown Phone Unavailable Care Team Providers Care Colorist Photography Name Role Phone Betsy Manzanares Primary Care Physician [phone] Encounter VC Date(s): 07/08/15 - 07/08/15 [facility] [address] [place] [address] Discharge Diagnosis: Cervical radiculopathy Discharge Diagnosis: Shoulder pain Discharge Diagnosis: PAIN IN JOINT INVOLVING SHOULDER REGION Discharge Diagnosis: Impingement syndrome, shoulder Discharge Diagnosis: Cervical spinal stenosis Discharge Diagnosis: Cervical spondylosis Discharge Disposition: 01-Home or Self Care Attending Physician: Jean Nascimento MD Admitting Physician: Jean Nascimento MD Referring Physician: Tobin Manzanares MD Vital Signs Most recent to 1 oldest [Reference Range]: Blood Pressure 136/78 mmHg [90-140/60-90 mmHg] (07/08/15 1:49 PM) Problem List Condition Effective Dates Status Health [...] Daily, # 90 tabs, 2 Refill(s), [facility] [place] Start Date: 10/10/15 Status: Ordered Co-Q10 200 mg, Oral, Daily, 0 Refill(s) Start Date: 02/01/15 Status: Ordered levothyroxine 88 mcg (0.088 mg) oral tablet 88 mcg 1 tabs, Oral, Daily, # 90 tabs, 2 Refill(s), [facility] [place], 1 tabs Oral Daily Start Date: 10/10/15 Status: Ordered [place] 5 mg-325 mg oral tablet 1 tabs, Oral, q6hr, as needed for pain, FOR NECK AND BACK PAIN, # 30 tabs, 0 Refill(s) Start Date: 12/09/15 Status: Ordered omeprazole 20 mg oral delayed release capsule See Instructions, 1 caps Oral Daily, # 90 caps, eRx: Pharmacy - [place], 1 caps Oral Daily Start Date: 12/09/15 [...] Extracted from: Title: Office Visit Note Author: Jean Nascimento MD Date: 07/08/15 Assessment/Plan Cervical radiculopathy Ordered: Internal Referral to Physical Therapy Cervical spinal stenosis Ordered: Internal Referral to Physical Therapy Cervical spondylosis Ordered: Internal Referral to Physical Therapy Impingement syndrome, shoulder Ordered: Internal Referral to Physical Therapy Shoulder pain Ordered: XR Shoulder Complete Right RECOMMENDATIONS: I explained to the patient she has2 areas of disc pathology one is her neck and the shoulder. In her neck she has cervical facet joint arthrosis in the right side which is symptomaticas well and cervical spinal stenosiswith right C5 and C6 radiculopathy. In her right shoulder she has a rotator cuff syndrome and a positive impingement signand subacromial bursitis. This correlates with the MRI of his cervical spine showing stenosis at multiple levels. She is about to start physical therapy and have written her for some additional exercisesin addition to the prescriptionshe hasfrom her primary care physician . If she is not improved she will call usand then we will set up for right C4 5 and C5 6 transforaminal epidural steroid injection as well as a rightsubacromial bursainjection under Ultrasound I explained the rationale of the procedures as well as the possible complications and the patient voiced understanding. I will get x-rays of her right shoulder today All questions were answered. I shall see the patient back for reassessment following completion of her physical therapyorder or if neededhershoulderand epidural steroid injection . Referrals to Other Providers Cervical spinal stenosis with right cervical radiculopathy and impingement syndrome of the right shoulder Referred by: Jean Nascimento MD
--- OUTSIDE RECORDS SUMMARY | 2017-03-08 09:06 | XMS REPORT | Referral Summary ---
Author Author [facility] Organization [facility] Address Unknown Phone Unavailable Care Team Providers Care Metal Patternmaker Name Role Phone Betsy Manzanares Primary Care Physician [phone] Encounter VC Date(s): 11/17/15 - 11/17/15 [facility] 1945 [address] [place] [place], [place] [address] Discharge Diagnosis: Cervical spondylosis Discharge Disposition: 01-Home or Self Care Attending Physician: Jean Nascimento MD Admitting Physician: Jean Nascimento MD Vital Signs Most recent to 1 oldest [Reference Range]: Peripheral Pulse 59 bpm Rate [60-100 bpm] *LOW* (11/17/15 1:37 PM) Respiratory Rate 16 br/min [14-20 br/min] (11/17/15 1:37 PM) Blood Pressure 154/71 mmHg [90-140/60-90 mmHg] *HI* (11/17/15 1:37 PM) SpO2 100 % (11/17/15 1:37 PM) Problem List Condition Effective Dates Status [...] day), # 30 tabs, 10 Refill(s), [facility] [place], 1 tabs Oral Bedtime (once a day) Start Date: 09/29/15 Status: Ordered bisoprolol-hydrochlorothiazide 5 mg-6.25 mg oral tablet .5 mg, Oral, Daily, # 90 tabs, 2 Refill(s), [facility] Start Date: 10/10/15 Status: Ordered Co-Q10 200 mg, Oral, Daily, 0 Refill(s) Start Date: 02/01/15 Status: Ordered fexofenadine 180 mg oral tablet 1 tabs, Oral, Daily, as needed for allergy symptoms, X 90 days, # 90 tabs, 3 Refill(s), Pharmacy: [facility], 1 tabs Oral Daily,x90 days,PRN:as needed for allergy symptoms Start Date: 12/22/14 Stop Date: 12/17/15 Status: Ordered levothyroxine 88 mcg (0.088 mg) oral tablet 88 mcg 1 tabs, Oral, Daily, # 90 tabs, 2 Refill(s), [facility] [place], 1 tabs Oral Daily Start Date: 10/10/15 Status: Ordered omeprazole 20 mg oral delayed release capsule 20 mg 1 caps, Oral, Daily, # 90 caps, 2 Refill(s), [facility], 1 caps Oral Daily Start Date: 10/10/15 Status: Ordered potassium chloride 10 mEq oral tablet, extended release 10 mEq 1 tabs, Oral, Daily, # 90 tabs, 2 Refill(s), [facility] [place], 1 tabs Oral Daily Start [...] Diagnosis Body Site Injection(s), diagnostic or therapeutic 11/17/15 agent, paravertebral facet (zygapophyseal) joint (or nerves innervating that joint) with image guidance (fluoroscopy or CT), cervical or thoracic; single level.. Injection(s), diagnostic or therapeutic 11/17/15 agent, paravertebral facet (zygapophyseal) joint (or nerves innervating that joint) with image guidance (fluoroscopy or CT), lumbar or sacral; second level (List separately in addition to code for primary procedure) Right C4-6 Medial Branch Block 11/17/15 Amputation, [...] Breast (Benign)3 1985 Dilation and curettage 1973 Cystoscopy/[place] Vaporization and Dil 1right 2nd toe, due to hammertoe condition. 2left eye only 3biopsy Social History Social History Type Response Smoking Status Never smoker Assessment and Plan No data available for this section
--- OUTSIDE RECORDS SUMMARY | 2017-03-08 09:06 | XMS REPORT | Referral Summary ---
Author Author [facility] Organization [facility] Address Unknown Phone Unavailable Care Team Providers Care Sap Bpc Developer Name Role Phone Betsy Manzanares Primary Care Physician [phone] Encounter VC Date(s): 11/15/15 - 11/15/15 [facility] [address] [place] [place] [address] Discharge Diagnosis: Degenerative disc disease, cervical Discharge Diagnosis: Cervicalgia Discharge Diagnosis: Cervical spondylosis Discharge Diagnosis: Cervical spinal stenosis Discharge Disposition: 01-Home or Self Care Attending Physician: Terra Simons Admitting Physician: Terra Simons Referring Physician: Tobin Manzanares MD Vital Signs Most recent to 1 oldest [Reference Range]: Blood Pressure 132/74 mmHg [90-140/60-90 mmHg] (11/15/15 10:34 AM) Problem List Condition Effective Dates Status [...] 30 tabs, 10 Refill(s), [facility] [place], 1 tabs Oral Bedtime (once a day) Start Date: 09/29/15 Status: Ordered bisoprolol-hydrochlorothiazide 5 mg-6.25 mg oral tablet .5 mg, Oral, Daily, # 90 tabs, 2 Refill(s), [facility] [place] Start Date: 10/10/15 Status: Ordered Co-Q10 200 mg, Oral, Daily, 0 Refill(s) Start Date: 02/01/15 Status: Ordered fexofenadine 180 mg oral tablet 1 tabs, Oral, Daily, as needed for allergy symptoms, X 90 days, # 90 tabs, 3 Refill(s), Pharmacy: [facility], 1 tabs Oral Daily,x90 days,PRN:as needed for allergy symptoms Start Date: 12/22/14 Stop Date: 12/17/15 Status: Ordered levothyroxine 88 mcg (0.088 mg) oral tablet 88 mcg 1 tabs, Oral, Daily, # 90 tabs, 2 Refill(s), [facility] [place], 1 tabs Oral Daily Start Date: 10/10/15 Status: Ordered [place] 5 mg-325 mg oral tablet 1 tabs, Oral, q6hr, as needed for back, neck and joint pain, # 30 tabs, 0 Refill (s) Start Date: 10/17/15 Stop Date: 11/17/15 Status: Ordered omeprazole 20 mg oral delayed release capsule 20 mg 1 caps, Oral, Daily, # 90 caps, 2 Refill(s), [facility] [place], 1 caps Oral Daily Start Date: 10/10/15 Status: Ordered potassium chloride 10 mEq oral tablet, extended release 10 mEq 1 tabs, Oral, Daily, # 90 tabs, 2 Refill(s), Pharmacy: Pharmacy - [facility], 1 tabs Oral Daily Start Date: 10/10/15 Status: Ordered Systane Balance 1 drops, Eye-Both, BID, as needed for dry eyes, 0 Refill(s) Start Date: 04/01/14 Status: Ordered terbinafine 250 mg oral tablet See Instructions, Take 1 tablet daily for 7 out of every 28 days for one year. , # 21 tabs, eRx: [facility], Take 1 tablet daily for 7 out of every 28 days for one year. Start Date: 04/27/15 Status: Ordered terbinafine 250 mg oral tablet See Instructions, 1 tabs daily for 7 out of 28 days, for one year, # 30 tabs, 1 Refill(s), Pharmacy: [facility], 1 tabs daily for 7 out [...] Extracted from: Title: Office Visit Note Author: Terra Simons Date: 11/15/15 Assessment/Plan Cervical spinal stenosis Cervical spondylosis Cervicalgia Degenerative disc disease, cervical I discussed this patient's care with Dr. Nascimento. I did review previous cervical spine MRI findings from 12/24/2014 with findings of multiple levels of facet arthropathy. She did have a grade 1 listhesis at C4 5 anddisc bulging mild centraland mild right foraminal narrowing, and C5 6 disc bulging moderate central narrowing moderate right and severe left foraminal narrowing, C6 7 Grade 1 anterior listhesis andmild central narrowing. C7-T1 disc bulging mild central narrowing. She does also have a cervical spine x-ray from 12/22/2014 noting atgrade 1 listhesis C6 7 althoughthere was no flexion or extension noted. Since just treating the right side Dr. Nascimento did not see a need for any additional flex/extinvestigations at this time. She still mainly seems to be symptomatic with right-sided mechanical neck pain symptomatic at the C4 to [address] Nascimento recommend confirming this by doing a right C4 to 6 medial branch blocks twice as diagnostic tests. She understands the rationale for the procedures possible complications and she wished to proceed. She understands that these are precursordiagnostic tests priorto considering a radiofrequency ablation. She'll follow-up here week following her cervical medial branch block sooner if needed. She may have residual symptoms at the C2 -3 joint that may need further treatment in the future. continue home exercise stretching. She voiced understanding and agrees to the above plans. The above was in discussion with Dr. Nascimento.
--- OUTSIDE RECORDS SUMMARY | 2017-03-08 09:06 | XMS REPORT | Referral Summary ---
Author Author [facility] Organization [facility] Address Unknown Phone Unavailable Care Team Providers Care Dye Mixer Name Role Phone Betsy Manzanares Primary Care Physician [phone] Encounter VC Date(s): 03/21/16 - 03/21/16 [facility] [address] [place] [id number] Discharge Disposition: 01-Home or Self Care Attending Physician: Tobin Manzanares MD Admitting Physician: Tobin Manzanares MD Vital Signs Most recent to 1 oldest [Reference Range]: Temperature Tympanic 36.9 degC [36.6-38.1 degC] (03/21/16 9:38 AM) Peripheral Pulse 72 bpm Rate [60-100 bpm] (03/21/16 9:38 AM) Blood Pressure 150/72 mmHg [90-140/60-90 mmHg] *HI* (03/21/16 9:38 AM) Mean Arterial 98 mmHg Pressure, Cuff (03/21/16 9:38 AM) Problem List Condition Effective Dates Status [...] 30 tabs, 11 Refill(s), Pharmacy: [facility], 1 tabs Oral Daily Start Date: 02/28/16 Status: Ordered [place] 5 mg-325 mg oral tablet 1 tabs, Oral, q6hr, as needed for pain, FOR NECK AND BACK PAIN, # 30 tabs, 0 Refill(s) Start Date: 12/09/15 Status: Ordered omeprazole 20 mg oral delayed release capsule See Instructions, 1 caps Oral Daily, # 90 caps, eRx: Pharm[facility], 1 caps Oral Daily Start Date: 12/09/15 [...] from: Title: Ambulatory Patient Education Author: Tobin Manzanarse MD Date: 03/21 Family Medicine Heart Disease Prevention Heart disease is a leading cause of . There are many things you can do to help prevent heart disease. BE PHYSICALLY ACTIVE Physical activity is good for your heart. It helps control your blood pressure, cholesterol levels, and weight. Try to be physically active every day. Ask your health care provider what activities are best for you. BE A HEALTHY WEIGHT Extra weight can strain your heart and affect your blood pressure and cholesterol levels. Lose weight with diet and exercise if recommended by your health care provider. EAT HEART-HEALTHY FOODS Follow a healthy eating plan as recommended by your health care provider or dietitian. Heart-healthy foods include: High-fiber foods. These include oat bran, oatmeal, and whole-grain breads and cereals. Fruits and vegetables. Avoid: Alcohol. Fried foods. Foods high in saturated fat. These include meats, butter, whole dairy products, shortening, and coconut or palm oil. Salty foods. These include canned food, luncheon meat, salty snacks, and fast food. KEEP YOUR CHOLESTEROL LEVELS UNDER CONTROL Cholesterol is a substance that is used for many important functions. When your cholesterol levels are high, cholesterol can stick to the insides of your blood vessels, making them narrow or clog. This can lead to chest pain (angina) and a heart attack. Keep your cholesterol levels under control as recommended by your health care provider. Have your cholesterol checked at least once a year. Target cholesterol levels (in mg/dL) for most people are: Total cholesterol below 200. LDL cholesterol below 100. HDL cholesterol above 40 in men and above 50 in women. Triglycerides below 150. KEEP YOUR BLOOD PRESSURE UNDER CONTROL Having high blood pressure (hypertension) puts you at risk for stroke and other forms of heart disease. Keep your blood pressure under control as recommended by your health care provider. DO NOT USE TOBACCO PRODUCTS Tobacco smoke can damage your heart and blood vessels. Do not use any tobacco products including cigarettes, chewing tobacco, or electronic cigarettes. If you need help quitting, ask your health care provider. TAKE MEDICINES DIRECTED Take medicines only as directed by your health care provider. Ask your health care provider whether you should take an aspirin every day. Taking aspirin can help reduce your risk of heart disease and stroke. FOR MORE INFORMATION To find out more about heart disease, visit the [place] [employer] Association's website at www.americanheart.org This information is not intended to replace advice given to you by your health care provider. Make sure you discuss any questions you have with your health care provider. Document Released: 05/28/2005 Document Revised: 08/02/2015 Document Reviewed: ExitCare Patient Information 2015 [employer]. No follow up information was provided. Extracted from: Title: multiple medical problems, Author: Tobin Manzanares MD Date: including HTN Impression and Plan Diagnosis NITZA-inhibitor cough (XUV92-[id number] R05, Working, Medical). Benign hypertension (EGO18-CQ I10, Working, Medical). Combined hyperlipidemia (PFM23-IY E78.2, Working, Medical). Adult hypothyroidism (WEQ83-PA E03.9, Working, Medical). Impaired fasting glucose (PPN88-HY R73.01, Working, Medical). Cervical spinal stenosis (HVB22-ZS M48.02, Working, Medical). Orthostatic hypotension (VPB14-VM I95.1, Working, Medical). Diverticulosis (RXK63-JR K57.90, Working, Medical). Plan: 1) Continue your current meds. 2) Check your BP cuff against other BP measurements to see if it is accurate. 3 See me in 2 months and as needed.. Orders Orders (Selected) Outpatient Orders Ordered Office Visit Level 4 Est 80924: . Dx/Order Association Plan: Diagnosis: NITZA-inhibitor cough Comment: Ordered: Office Visit Level 4 Est 29039; 03/21/16 14:42:00 CDT, Benign hypertension | NITZA-inhibitor cough | Combined hyperlipidemia | Diverticulosis | Orthostatic hypotension Diagnosis: Adult hypothyroidism Comment: Diagnosis: Benign hypertension Comment: Ordered: Office Visit Level 4 Est 94856; 03/21/16 14:42:00 CDT, Benign hypertension | NITZA-inhibitor cough | Combined hyperlipidemia | Diverticulosis | Orthostatic hypotension Diagnosis: Cervical spinal stenosis Comment: Diagnosis: Combined hyperlipidemia Comment: Ordered: Office Visit Level 4 Est 91806; 03/21/16 14:42:00 CDT, Benign hypertension | NITZA-inhibitor cough | Combined hyperlipidemia | Diverticulosis | Orthostatic hypotension Diagnosis: Diverticulosis Comment: Ordered: Office Visit Level 4 Est [id number]; 03/21/16 14:42:00 CDT, Benign hypertension | NITZA-inhibitor cough | Combined hyperlipidemia | Diverticulosis | Orthostatic hypotension Diagnosis: Impaired fasting glucose Comment: Diagnosis: Orthostatic hypotension Comment: Ordered: Office Visit Level 4 Est [id number]; 03/21/16 14:42:00 CDT, Benign hypertension | NITZA-inhibitor cough | Combined hyperlipidemia | Diverticulosis | Orthostatic hypotension End of Orders ."
--- OUTSIDE RECORDS SUMMARY | 2017-03-08 09:06 | XMS REPORT | Continuity of Care Document ---
Author Author Jeffery BILLINGS, Enzo Pederson [facility] Ambulatory Address [address] [place] [address] Phone Care Team Providers Care Spine Specialist Name Role Phone Tobin Manzanares PP Unavailable Payers Payer name Insurance type Covered alliance party ID Authorization(s) Unknown Problems Condition Effective Dates (start - stop) Clinical Status Hypertension - *Chronic Hypothyroid - *Controlled Osteoarthritis [...] - *Chronic Low back pain - *Chronic Other hammer toe (acquired) - *Chronic Rash - *Acute Family History [...] Height Weight Pulse Rate Blood Pressure Temperature /07:07:00 66.00 in 178.57 lbs 150/81 mm[Hg] Procedures Procedure Date Unknown Encounters Encounter Location Date Patient Visit [facility] Patient Visit [facility] Patient Visit [facility] Patient Visit [facility] Patient Visit [facility] Patient [facility] Patient [facility] Patient [facility] Patient [facility] Patient [facility] Patient Visit [facility] Patient Visit [facility] Patient Visit [facility] Pod Patient [facility] Patient Visit [facility] New Pod Patient Visit [facility] Advance Directives Directive Effective Date Unknown
--- OUTSIDE RECORDS SUMMARY | 2017-03-08 09:06 | XMS REPORT | Referral Summary ---
Author Author [facility], Pain Management Organization [facility] Address Unknown Phone Unavailable Care Team Providers Care Adult Education Instructor Name Role Phone Betsy Manzanares Primary Care Physician [phone] Encounter Date(s): 09/08/15 - 09/08/15 [facility] [address] [facility] [place] [address] Discharge Diagnosis: Degenerative disc disease, cervical Discharge Diagnosis: Cervicalgia Discharge Diagnosis: Cervical spinal stenosis Discharge Diagnosis: Cervical spondylosis Discharge Disposition: 01-Home or Self Care Attending Physician: Terra Simons Admitting Physician: Terra Simons Vital Signs Most recent to 1 oldest [Reference Range]: Blood Pressure 124/60 mmHg [90-140/60-90 mmHg] (09/08/15 10:26 AM) Problem List Condition Effective Dates Status [...] BEDTIME, # 30 Each, eRx: Pharmacy - [facility], TAKE ONE (1) TABLET(S) DAILY AT BEDTIME [...] BID, # 180 caps, 3 Refill(s), Pharmacy: [facility], 1 caps Oral BID Start Date: 02/14/15 Status: Ordered levothyroxine 88 mcg (0.088 mg) oral tablet 88 mcg 1 tabs, Oral, Daily, per Dr. Manzanares, # 30 tabs, 0 Refill(s) Start Date: 08/25/15 Status: Ordered [place] 5 mg-325 mg oral tablet 1 tabs, Oral, Daily, as needed for back, neck and joint pain, 0 Refill(s) Start Date: 08/15/15 Status: Ordered omeprazole 20 mg oral delayed release capsule 20 mg 1 caps, Oral, Daily, # 90 caps, 1 Refill(s), Pharmacy: [facility], 1 caps Oral Daily Start Date: 06/13/15 Status: Ordered potassium chloride 10 mEq oral tablet, extended release See Instructions, TAKE ONE (1) TABLET(S) DAILY, # 90 Each, eRx: Pharmacy - [facility], TAKE ONE (1) TABLET(S) DAILY Start Date: 08/05/15 Status: Ordered Systane Balance 1 drops, Eye-Both, BID, as needed for dry eyes, 0 Refill(s) Start Date: 04/01/14 Status: Ordered terbinafine 250 mg oral tablet See Instructions, Take 1 tablet daily for 7 out of every 28 days for one year. , # 21 tabs, eRx: [facility], Take 1 tablet daily for 7 out of every 28 days for one year. Start Date: 04/27/15 Status: Ordered terbinafine 250 mg oral tablet See Instructions, 1 tabs daily for 7 out of 28 days, for one year, # 30 tabs, 1 Refill(s), Pharmacy: [facility], 1 tabs daily for 7 out of [...] Office Visit Note Author: Terra Simons Date: 09/08/15 Assessment/Plan Cervical spinal stenosis Cervical spondylosis Cervicalgia Degenerative disc disease, cervical I discussed this patient's care with Dr. Nascimento. I did review the patient's investigations including a cervical spine MRIwith the multiple levels of facet arthropathy. There is a grade 1 listhesis noted C4 5 on the MRI not noted on the x-ray. Some disc bulgingfacet arthropathy resulting in mild central narrowing and mild right foraminal narrowing. C6 7there is disc bulging spondylitic changes with moderate central stenosis moderate right and severe left foraminal narrowing. C6 7 and grade 1 listhesis and the some mild central narrowing. She has some pain in the top of her right the cervical paraspinal region which may be some very early radicular type symptoms but does not have any significant shoulder blade or arm pain. This did not seem to beher main complaint at this time. Her worst complaint seems to be her right lateral neck pain. This seems more consistent with mechanical pain. Dr. Nascimento did recommend considering right C4 to 6 medial branch blocks twice as a diagnostic tests a precursor to radiofrequency ablation. I did have a detailed discuss with the patient and her what is involved with the medial branch blocks and radiofrequency ablation provided herwith information regarding this. If she chooses to proceed she'll call back in the next one month to schedule right C4 to 6 medial branch block twiceand aone week follow-up appointment. She has a friend who had a RFA and she wants to talk to her before she decides if she wants to proceed. There is no surgical indication at this time. She has no myelopathic signs. She was encouraged to continue home exercise and stretching but to be cautious to avoid activities that require repetitive above shoulder lifting or awkward positioning of her neck. I did have a detailed discussion with the patient and her regarding her cervical MRIresults andusing the spinal model. Might also want to get a cervical lateral flex/extx-ray to assess her listhesis further is she chooses to proceed. She will follow-up here otherwise on an as-needed basis. She and her voiced understanding and agrees to the above plans. The above was in discussion with Dr. Nascimento.
--- OUTSIDE RECORDS SUMMARY | 2017-03-08 09:06 | XMS REPORT | Referral Summary ---
Author Author [facility] Organization [facility] Address Unknown Phone Unavailable Care Team Providers Care Escort Vehicle Driver Name Role Phone Betsy Manzanares Primary Care Physician [phone] Encounter VC Date(s): 02/13/16 - 02/13/16 [facility] [address] [place] [address] Discharge Disposition: 01-Home or Self Care Attending Physician: Tobin Manzanares MD Admitting Physician: Tobin Manzanares MD Vital Signs Most recent to 1 oldest [Reference Range]: Temperature Tympanic 36.5 degC [36.6-38.1 degC] *LOW* (02/13/16 9:33 AM) Peripheral Pulse 68 bpm Rate [60-100 bpm] (02/13/16 9:33 AM) Blood Pressure 140/72 mmHg [90-140/60-90 mmHg] (02/13/16 9:33 AM) Problem List Condition Effective Dates Status [...] # 90 tabs, 2 Refill(s), [facility], 1 tabs Oral Daily Start Date: 10/10/15 Status: Ordered lisinopril 5 mg oral tablet 5 mg 1 tabs, Oral, Daily, # 30 tabs, 11 Refill(s), Pharmacy: [facility], 1 tabs Oral Daily Start Date: 02/13/16 Status: Ordered [place] 5 mg-325 mg oral tablet 1 tabs, Oral, q6hr, as needed for pain, FOR NECK AND BACK PAIN, # 30 tabs, 0 Refill(s) Start Date: 12/09/15 Status: Ordered omeprazole 20 mg oral delayed release capsule See Instructions, 1 caps Oral Daily, # 90 caps, eRx: [facility], 1 caps Oral Daily Start Date: 12/09/15 [...] (RT) Breast (Benign)1985 Dilation and curettage 1973 Cystoscopy/Lazer Vaporization and Dil 1hyperplastic polyp, sigmoid diverticulosis, family history colon cancer in her father, repeat in 5 years 2right 2nd toe, due to hammertoe condition. 3left eye only 4biopsy Social History Social History Type Response Smoking Status Never smoker Assessment and Plan Extracted from: Title: Ambulatory Patient Education Author: Tobin Manzanares MD Date: 02/12 Family Medicine Heart Disease Prevention Heart disease [...] out more about heart disease, visit the [place] [employer]'s website at www.americanheart.org This information is not intended to replace advice given to you by your health care provider. Make sure you discuss any questions you have with your health care provider. Document Released: 05/28/2005 Document Revised: 08/02/2015 Document Reviewed: ExitCare Patient Information 2015 [employer]. No follow up information was provided. Extracted from: Title: hyperlipidemia, HTN, Author: Tobin Manzanares MD Date: 02/13/16 orthostatic hypotension, hypothyroidism Impression and Plan Diagnosis Need for hepatitis A vaccination (JQV35-XT Z23, Working, Medical). Combined hyperlipidemia (CIF53-HL E78.2, Working, Medical). Benign hypertension (LHV55-JI I10, Working, Medical). Adult hypothyroidism (HMH04-UC E03.9, Working, Medical). Impaired fasting glucose (TKU41-LI R73.01, Working, Medical). Cervical spinal stenosis (TIU28-EP M48.02, Working, Medical). Orthostatic hypotension (OHH84-PQ I95.1, Working, Medical). Plan: 1) Take 1/4 of a Bisoprolol tab daily for 4 days, then stop it. 2) Then take 1/2 of a Lisinopril 5 mg tab daily for 4 days, then one tab daily. 3) Stop the potassium. 4) Get fasting lab in 2 weeks. 5) Continue your other meds the same. 6) See me in one month for a recheck of BP and orthostatic hypotension. 7) Call sooner if your BP is running high and we can double your Lisinopril dose over the phone.. Orders Orders (Selected) Outpatient Orders Ordered Office Visit Level 4 Est 22787: Completed hepatitis A vaccine, adult: 1400 [address] U, IntraMuscular, Once Future (On Hold) CMP: Prescriptions Prescribed lisinopril 5 mg oral tablet: 5 mg=1 tabs, Oral, Daily, 30 tabs, 11 Refill(s). Dx/Order Association Plan: Diagnosis: Adult hypothyroidism Comment: Ordered: Office Visit Level 4 Est 49184; 02/13/16 12:41:00 CDT, Benign hypertension | Orthostatic hypotension | Cervical spinal stenosis | Combined hyperlipidemia | Adult hypothyroidism Diagnosis: Benign hypertension Comment: Ordered: Office Visit Level 4 Est 72019; 02/13/16 12:41:00 CDT, Benign hypertension | Orthostatic hypotension | Cervical spinal stenosis | Combined hyperlipidemia | Adult hypothyroidism Diagnosis: Cervical spinal stenosis Comment: Ordered: Office Visit Level 4 Est 28434; 02/13/16 12:41:00 CDT, Benign hypertension | Orthostatic hypotension | Cervical spinal stenosis | Combined hyperlipidemia | Adult hypothyroidism Diagnosis: Combined hyperlipidemia Comment: Ordered: Office Visit Level 4 Est 31989; 02/13/16 12:41:00 CDT, Benign hypertension | Orthostatic hypotension | Cervical spinal stenosis | Combined hyperlipidemia | Adult hypothyroidism Diagnosis: Impaired fasting glucose Comment: Diagnosis: Need for hepatitis A vaccination Comment: Diagnosis: Orthostatic hypotension Comment: Ordered: Office Visit Level 4 Est [id number]; 02/13/16 12:41:00 CDT, Benign hypertension | Orthostatic hypotension | Cervical spinal stenosis | Combined hyperlipidemia | Adult hypothyroidism Diagnosis: Benign hypertension Comment: Additional Orders: Comment: Ordered: lisinopril 5 mg oral tablet,5 mg 1 tabs, Oral, Daily, # 30 tabs, 11 Refill(s), Pharmacy: [facility], 1 tabs Oral Daily End of Orders ."
--- OUTSIDE RECORDS SUMMARY | 2017-03-08 09:06 | XMS REPORT | Continuity of Care Document ---
Author Author Jeffery BILLINGS, Enzo Pederson [facility] Ambulatory Address [address] [place] [address] Phone Care Team Providers Care Administration Manager Name Role Phone Tobin Manzanares PP Unavailable Payers Payer name Insurance type Covered libertarian ID Authorization(s) Unknown Problems Condition Effective Dates (start - stop) Clinical Status Other hammer toe (acquired) - *Chronic Enthesopathy of ankle and tarsus, unspecified - *Chronic Hypertension - *Chronic Hypothyroid - [...] distal fibula - *Acute Influenza Vaccine - Fracture of fibula, distal, left, closed - [...] Unknown Encounters Encounter Location Date Patient Visit [facility] Patient Visit [facility] Patient Visit [facility] Patient Visit [facility] Patient Visit [facility] Patient Visit [facility] Patient Visit [facility] Patient Visit [facility] Patient Visit [facility] Patient Visit [facility] Patient Visit [facility] Patient Visit [facility] Patient Visit [facility] Patient Visit [facility] Patient Visit [facility] Advance Directives Directive Effective Date Unknown
--- OUTSIDE RECORDS SUMMARY | 2017-03-08 09:06 | XMS REPORT | Continuity of Care Document ---
Author Author Trish Carter MA [facility] Ambulatory Address [address] [place] [address] Phone Care Team Providers Care Toe Stapler Name Role Phone Tobin Manzanares PP Unavailable Payers Payer name Insurance type Covered democrat ID Authorization(s) Unknown Problems Condition Effective Dates (start - stop) Clinical Status Hypercholesterolemia - *Chronic Hypothyroid - *Chronic Fracture of fibula, distal, closed - *Acute Hypertension, Benign - *Chronic Allergic rhinitis, cause unspecified - *Chronic Low back pain - Intermittent Osteoarthritis of both knees - *Chronic Hypertension - *Chronic Hypothyroid - *Controlled Osteoarthritis of finger - *Chronic Fibrocystic breast - *Chronic Fibroid uterus - Chronic Hypercholesterolemia - *Chronic Hyperlipidemia, NOS - *Chronic Hypertension, [...] Dosage Effective Dates (start - stop) Status take 1 Teaspoon by Oral route NEEDED - Active Cholest Off 450 mg tablet take 1 Tablet by Oral route every DAY 2012 - Active Systane Balance 0.6 % Eye Drops apply 2 by Ophthalmic route NEEDED - Active fluticasone 50 mcg/actuation Nasal [place], Susp inhale 2 spray (100MCG) by intranasal route NEEDED - Active Fish Oil 1,000 mg capsule take 1 [...] route every day 88 MCG - Active Ziac 5 mg-6.25 mg tablet Take 1/2 tab po daily - Active Klor-Con M10 mEq tablet,extended release Take 1 tablet by mouth every day. - Active omeprazole 20 mg capsule,delayed release Take 1 capsule by mouth every day. - Active Immunizations Vaccine Date Status Comments Flu (split) (3 yrs or older) completed Flu (split) (3 yrs or older) completed Results Test Name Date and Time Measure Units Reference Range Abnormal Flag Comments Unknown Vital Signs Date / Time: Height Weight Pulse Rate Blood Pressure Temperature /09:02:00 67.00 in 178.00 lbs 78 /min 138/70 mm[Hg] 98.0 F Procedures Procedure Date FLU VACCINE,>/=3 YRS, IM ADMINISTRATION OF FLU SHOT Encounters Encounter Location Date Patient Visit [facility] Patient [facility] Patient [facility] Patient [facility] Patient [facility] Patient [facility] Patient [facility] Patient [facility] Patient [facility] Patient [facility] Patient [facility] Patient [facility] Advance Directives Directive Effective Date Unknown
--- OUTSIDE RECORDS SUMMARY | 2017-03-08 09:06 | XMS REPORT | Referral Summary ---
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 Name Role Phone Betsy Manzanares Primary Care Physician [phone] Encounter VC Date(s): 02/18/15 - 02/18/15 [facility], [place], Family [address] [place] [address] Discharge Diagnosis: Right cervical radiculopathy Discharge Diagnosis: Cervical spinal stenosis Discharge Diagnosis: Contusion of knee, right Discharge Diagnosis: Hypertension, essential, benign Discharge Disposition: Home or Self Care Attending Physician: Tobin Manzanares MD Admitting Physician: Tobin Manzanares MD Vital Signs Most recent to 1 oldest [Reference Range]: Temperature Tympanic 37.1 degC [36.6-38.1 degC] (02/18/15 1:18 PM) Peripheral Pulse 68 bpm Rate [60-100 bpm] (02/18/15 1:18 PM) Blood Pressure 122/70 mmHg [90-140/60-90 mmHg] (02/18/15 1:18 PM) Problem List Condition Effective Dates Status Health Status Informant Benign Active hypertension(Confirm ed) Right cervical Active radiculopathy(Confir med) Chronic low back Active pain(Confirmed) Contusion of knee, Active right(Confirmed) High Active cholesterol(Confirme d) Hypertension, Active essential, [...] Status: Ordered atorvastatin 10 mg oral tablet 1 tabs, Oral, Bedtime (once a day), # 30 tabs, 8 Refill(s), Pharmacy: [facility], 1 tabs Oral Bedtime (once a day) Start Date: 11/05/14 Status: Ordered bisoprolol-hydrochlorothiazide 5 mg-6.25 mg oral tablet 0.5 tabs, Oral, Daily, # 90 tabs, 2 Refill(s), Pharmacy: [facility] Start Date: 11/05/14 Stop Date: 08/05/15 Status: Ordered Co-Q10 200 mg, Oral, Daily, 0 Refill(s) Start Date: 02/01/15 Status: Ordered fexofenadine 180 mg oral tablet 1 tabs, Oral, Daily, as needed for allergy symptoms, X 90 days, # 90 tabs, 3 Refill(s), Pharmacy: [facility], 1 tabs Oral Daily,x90 days,PRN:as needed for allergy symptoms Start Date: 12/22/14 Stop Date: 12/17/15 Status: Ordered gabapentin 100 mg oral capsule 1 caps, Oral, BID, # 180 caps, 3 Refill(s), Pharmacy: [facility], 1 caps Oral BID Start Date: 02/14/15 Status: Ordered levothyroxine 88 mcg (0.088 mg) oral tablet 1 tabs, Oral, Daily, # 90 tabs, 2 Refill(s), Pharmacy: [facility], 1 tabs Oral Daily Start Date: 11/05/14 Stop Date: 08/05/15 Status: Ordered omeprazole 20 mg oral delayed release capsule 1 caps, Oral, Daily, # 90 caps, 2 Refill(s), Pharmacy: [facility], 1 caps Oral Daily Start Date: 11/05/14 Status: Ordered potassium chloride 10 mEq oral tablet, extended release See Instructions, TAKE ONE TABLET BY MOUTH EVERY DAY, # 90 tabs, 2 Refill(s), Pharmacy: [facility], TAKE ONE TABLET BY MOUTH EVERY DAY [...] year, # 30 tabs, 1 Refill(s), Pharmacy: [facility], 1 tabs daily for 7 out [...] repair 1991 Biopsy of (RT) Breast (Benign) 1986 Dilation and curettage 1974 Cystoscopy/Lazer Vaporization and Dil 1right 2nd toe, due to hammertoe condition. 2right 2nd toe Social History Social History Type Response Smoking Status Never smoker Assessment and Plan Extracted from: Title: Ambulatory Patient Education Author: Tobin Manzanares MD Date: 02/18 Family Medicine Contusion A contusion is a deep bruise. Contusions are the result of an injury that caused bleeding under the skin. The contusion may turn blue, purple, or yellow. Minor injuries will give you a painless contusion, but more severe contusions may stay painful and swollen for a few weeks. CAUSES A contusion is usually caused by a blow, trauma, or direct force to an area of the body. SYMPTOMS Swelling and redness of the injured area. Bruising of the injured area. Tenderness and soreness of the injured area. Pain. DIAGNOSIS The diagnosis can be made by taking a history and physical exam. An X-ray, CT scan, or MRI may be needed to determine if there were any associated injuries, such as fractures. TREATMENT Specific treatment will depend on what area of the body was injured. In general , the best treatment for a contusion is resting, icing, elevating, and applying cold compresses to the injured area. Neca-bfz-fpoijlc medicines may also be recommended for pain control. Ask your caregiver what the best treatment is for your contusion. HOME CARE INSTRUCTIONS Put ice on the injured area. Put ice in a plastic bag. Place a towel between your skin and the bag. Leave the ice on for 15-20 minutes, 03-04 times a day. Only take accp-cyl-kndpwxy or prescription medicines for pain, discomfort, or fever as directed by your caregiver. Your caregiver may recommend avoiding anti-inflammatory medicines (aspirin, ibuprofen, and naproxen) for 48 hours because these medicines may increase bruising. Rest the injured area. If possible, elevate the injured area to reduce swelling. SEEK IMMEDIATE MEDICAL CARE IF: You have increased bruising or swelling. You have pain that is getting worse. Your swelling or pain is not relieved with medicines. MAKE SURE YOU: Understand these instructions. Will watch your condition. Will get help right away if you are not doing well or get worse. Document Released: 07/24/2006 Document Revised: 01/05/2013 Document Reviewed: [facility] Patient Information 2014 [employer] [facility]. No follow up information was provided. Extracted from: Title: right knee contusion, HTN Author: Tobin Manzanares MD Date: 02/18/15 Impression and Plan Diagnosis Cervical spinal stenosis (ICD9 723.0, Discharge, Medical). Contusion of knee, right (ICD9 924.11, Discharge, Medical). Hypertension, essential, benign (ICD9 401.1, Discharge, Medical). Right cervical radiculopathy (ICD9 723.4, Discharge, Medical). Plan: Use the knee brace if you need to, but not excessively. Ice the knee off and on for a few more days. Walk frequently, for short distances, every 5- 10 minutes. Water exercises would be most helpful. PT could be done. This will take 3-12 months to heal. Avoid kneeling, squatting, and anything that causes pain. Stairs will be difficult for you. Followup as needed. Followup as needed. No change to your routine meds at this time., Xrays do not appear to be needed at this time.. Orders Orders (Selected) Outpatient Orders Ordered Office Visit Level 4 Est 25234: . Dx/Order Association Plan: Diagnosis: Cervical spinal stenosis Comment: Ordered: Office Visit Level 4 Est 56055; 02/18/15 13:57:00 CDT, Contusion of knee, right | Hypertension, essential, benign | Cervical spinal stenosis | Right cervical radiculopathy Diagnosis: Contusion of knee, right Comment: Ordered: Office Visit Level 4 Est 94803; 02/18/15 13:57:00 CDT, Contusion of knee, right | Hypertension, essential, benign | Cervical spinal stenosis | Right cervical radiculopathy Diagnosis: Hypertension, essential, benign Comment: Ordered: Office Visit Level 4 Est 58553; 02/18/15 13:57:00 CDT, Contusion of knee, right | Hypertension, essential, benign | Cervical spinal stenosis | Right cervical radiculopathy Diagnosis: Right cervical radiculopathy Comment: Ordered: Office Visit Level 4 Est [id number]; 02/18/15 13:57:00 CDT, Contusion of knee, right | Hypertension, essential, benign | Cervical spinal stenosis | Right cervical radiculopathy End of Orders ."
--- OUTSIDE RECORDS SUMMARY | 2017-03-08 09:07 | XMS REPORT | Continuity of Care Document ---
Author Author [facility] Organization [facility] Address Unknown Phone Unavailable Allergies Medications Problems Procedures Results Encounters ACCT No. Visit Date/Time Discharge Status Pt. Type Provider Facility Loc./Unit Complaint [id number] 01/20/2014 07:07:00 01/20/2014 23 :59:59 CLS Outpatient [id number] 01/11/2014 08:36:00 01/11/2014 23 :59:59 CLS Outpatient [id number] 12/16/2013 14:24:00 12/16/2013 23 :59:59 CLS Outpatient [id number] 09/30/2013 10:45:00 09/30/2013 23 :59:59 CLS Outpatient [id number] 08/19/2013 09:02:00 08/19/2013 23 :59:59 CLS Outpatient
--- OUTSIDE RECORDS SUMMARY | 2017-03-08 09:07 | XMS REPORT | Referral Summary ---
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 Name Role Phone Betsy Manzanares Primary Care Physician [phone] Encounter Date(s): 09/10/16 - 09/10/16 [facility] [address] [place] [id number] Discharge Diagnosis: Impaired fasting glucose Discharge Diagnosis: Combined hyperlipidemia Discharge Diagnosis: Right knee pain Discharge Diagnosis: Gastroesophageal reflux disease Discharge Diagnosis: Osteopenia Discharge Diagnosis: Microhematuria Discharge Diagnosis: Adult hypothyroidism Discharge Diagnosis: Benign hypertension Discharge Disposition: 01-Home or Self Care Attending Physician: Tobin Manzanares MD Admitting Physician: Tobin Manzanares MD Vital Signs Most recent to 1 oldest [Reference Range]: Temperature Tympanic 36.9 degC [36.6-38.1 degC] (09/10/16 1:15 PM) Peripheral Pulse 76 bpm Rate [60-100 bpm] (09/10/16 1:15 PM) Blood Pressure 154/74 mmHg [90-140/60-90 mmHg] *HI* (09/10/16 1:15 PM) Problem List Condition Effective Dates Status [...] # 90 tabs, 2 Refill(s), [facility], 1 tabs Oral Daily Start Date: 10/10/15 Status: Ordered losartan 25 mg oral tablet 25 mg 1 tabs, Oral, Daily, # 30 tabs, 11 Refill(s), Pharmacy: [facility] [place], 1 tabs Oral Daily Start Date: 02/28/16 Status: Ordered [place] 5 mg-325 mg oral tablet 1 tabs, Oral, q6hr, as needed for pain, FOR NECK AND BACK PAIN, # 30 tabs, 0 Refill(s) Start Date: 12/09/15 Status: Ordered omeprazole 20 mg oral delayed release capsule See Instructions, 1 caps Oral Daily, # 90 caps, eRx: Pharmacy - [place], 1 caps Oral Daily Start Date: 12/09/15 [...] Patient Education Author: Tobin Manzanares MD Date: Preventive Medicine Cholesterol Cholesterol is a white, waxy, fat-like [...] medicine even if your levels are normal. This information is not intended to replace advice given to you by your health care provider. Make sure you discuss any questions you have with your health care provider. Document Released: 07/09/2002 Document Revised: 11/04/2015 Document Reviewed: [employer] Patient Education 2016 [employer] No follow up information was provided. Extracted from: Title: Female Physical Author: Tobin Manzanares MD Date: 09/10/16 Impression and Plan Diagnosis Adult hypothyroidism (ZCY85-FO E03.9, Discharge, Medical). Benign hypertension (QSB57-VA I10, Discharge, Medical). Combined hyperlipidemia (GAZ14-RB E78.2, Discharge, Medical). Gastroesophageal reflux disease (NGP17-OT K21.9, Discharge, Medical). Impaired fasting glucose (NLH90-RI R73.01, Discharge, Medical). Microhematuria (KBV89-XO R31.29, Discharge, Medical). Osteopenia (VLG11-DJ M85.859, Discharge, Medical). Pap smear for cervical cancer screening (CDF14-SG Z12.4, Working, Medical). Right knee pain (WIP38-QA M25.561, Discharge, Medical). Plan: 1) Schedule a DEXA bone density test here in the next 6 months. 2) Fasting lab within one month. 3) Continue your current meds. 4) Healthy diet and daily exercise helps most things. 5) You got your flu shot already. 6) See me in one year and as needed. 7) Pap smear obtained. 8) Get your Tdap sometime this year.. Orders Orders (Selected) Outpatient Orders Ordered Office Visit Level 5 Est 59522: Completed Pathology Running Rigger Cytology Order: Future (On Hold) CBC w/ Differential: CMP: DEXA Axial Skeleton, BD Bone Density: Fasting Lipid Profile: Hgb A1c: Routine Urinalysis: TSH 3rd Generation: . Dx/Order Association Plan: Diagnosis: Adult hypothyroidism Comment: Modified: Office Visit Level 5 Est 99532; 09/10/16 14:00:00 PROPERTY MAN, Benign hypertension | Combined hyperlipidemia | Adult hypothyroidism | Right knee pain | Osteopenia | Microhematuria | Impaired fasting glucose | Gastroesophageal reflux disease | Pap smear for cervical cancer screening Diagnosis: Benign hypertension Comment: Modified: Office Visit Level 5 Est 10729; 09/10/16 14:00:00 PROPERTY MAN, Benign hypertension | Combined hyperlipidemia | Adult hypothyroidism | Right knee pain | Osteopenia | Microhematuria | Impaired fasting glucose | Gastroesophageal reflux disease | Pap smear for cervical cancer screening Diagnosis: Combined hyperlipidemia Comment: Modified: Office Visit Level 5 Est 08692; 09/10/16 14:00:00 PROPERTY MAN, Benign hypertension | Combined hyperlipidemia | Adult hypothyroidism | Right knee pain | Osteopenia | Microhematuria | Impaired fasting glucose | Gastroesophageal reflux disease | Pap smear for cervical cancer screening Diagnosis: Gastroesophageal reflux disease Comment: Modified: Office Visit Level 5 Est 99402; 09/10/16 14:00:00 PROPERTY MAN, Benign hypertension | Combined hyperlipidemia | Adult hypothyroidism | Right knee pain | Osteopenia | Microhematuria | Impaired fasting glucose | Gastroesophageal reflux disease | Pap smear for cervical cancer screening Diagnosis: Impaired fasting glucose Comment: Modified: Office Visit Level 5 Est 07075; 09/10/16 14:00:00 PROPERTY MAN, Benign hypertension | Combined hyperlipidemia | Adult hypothyroidism | Right knee pain | Osteopenia | Microhematuria | Impaired fasting glucose | Gastroesophageal reflux disease | Pap smear for cervical cancer screening Diagnosis: Microhematuria Comment: Modified: Office Visit Level 5 Est 98543; 09/10/16 14:00:00 PROPERTY MAN, Benign hypertension | Combined hyperlipidemia | Adult hypothyroidism | Right knee pain | Osteopenia | Microhematuria | Impaired fasting glucose | Gastroesophageal reflux disease | Pap smear for cervical cancer screening Diagnosis: Osteopenia Comment: Modified: Office Visit Level 5 Est 79808; 09/10/16 14:00:00 PROPERTY MAN, Benign hypertension | Combined hyperlipidemia | Adult hypothyroidism | Right knee pain | Osteopenia | Microhematuria | Impaired fasting glucose | Gastroesophageal reflux disease | Pap smear for cervical cancer screening Diagnosis: Pap smear for cervical cancer screening Comment: Modified: Office Visit Level 5 Est 59959; 09/10/16 14:00:00 PROPERTY MAN, Benign hypertension | Combined hyperlipidemia | Adult hypothyroidism | Right knee pain | Osteopenia | Microhematuria | Impaired fasting glucose | Gastroesophageal reflux disease | Pap smear for cervical cancer screening Diagnosis: Right knee pain Comment: Modified: Office Visit Level 5 Est 48201; 09/10/16 14:00:00 PROPERTY MAN, Benign hypertension | Combined hyperlipidemia | Adult hypothyroidism | Right knee pain | Osteopenia | Microhematuria | Impaired fasting glucose | Gastroesophageal reflux disease | Pap smear for cervical cancer screening Diagnosis: Combined hyperlipidemia Comment: Diagnosis: Benign hypertension Comment: Diagnosis: Benign hypertension Comment: Diagnosis: Combined hyperlipidemia Comment: Diagnosis: Impaired fasting glucose Comment: Diagnosis: Osteopenia Comment: Diagnosis: Osteopenia Comment: Diagnosis: Impaired fasting glucose Comment: Diagnosis: Adult hypothyroidism Comment: Diagnosis: Benign hypertension Comment: End of Orders ."
[2017-03-08] MEDS ORDERED: OMEP20CA10 PO (09:14)
[2017-03-08] MEDS ORDERED: LEVO100T12 PO (09:14)
[2017-03-08] MEDS ORDERED: LOSA25TA34 PO (09:14)
[2017-03-08] MEDS ORDERED: NITROGLYCERIN 0.4 MG SUBLINGUAL TABLET SL PRN (09:15)
[2017-03-08] MEDS ORDERED: ASPIRIN 81 MG CHEWABLE TABLET PO ONE (09:15)
[2017-03-08] MEDS ORDERED: UBID200C15 PO (09:18)
[2017-03-08] MEDS ORDERED: HYDR-4246 PO (09:18)
[2017-03-08] MEDS ORDERED: ASPI-557 PO (09:18)
[2017-03-08] MEDS ORDERED: CHOL100018 PO (09:18)
--- NOTE | 2017-03-08 09:38 | NUR ---
IV IV ATTEMPT X4 UNSUCCESSFUL, 1 BY THIS RN 3 BY OTHER RN, SPOKE WITH JACQUI VIDALES TO OBTAIN LAB DRAW WITHOUT IV START.
[2017-03-08 09:44] LABS: BASOPHILS % (AUTO) 0.4 % (0-2); EOSINOPHILS # (AUTO) 0.2 T/MM3 (0-0.5); EOSINOPHILS % (AUTO) 3.4 % (0-4); HCT - HEMATOCRIT 40.4 % (36-46); HGB - HEMOGLOBIN 12.9 GM/DL (12-16); IMMATURE GRANULOCYTE # (AUTO) 0.01 T/MM3 (0.00-0.03); IMMATURE GRANULOCYTE % (AUTO) 0.2 % (0.0-0.5); LYMPHOCYTES # (AUTO) 1.5 T/MM3 (1-4.8); LYMPHOCYTES % (AUTO) 27.1 % (23-45); MEAN CORPUSCULAR HGB 27.9 UUG (26-34); MEAN CORPUSCULAR HGB CONC(MCHC 31.9 GM/DL (31-37); MEAN CORPUSCULAR VOLUME 87.3 UM3 (80-100); MEAN PLATELET VOLUME 9.2 UM3 (9.4-12.4); MONOCYTES # (AUTO) 0.5 T/MM3 (0-0.8); NEUTROPHILS #(AUTO)-ABSOLUTE 3.2 T/MM3 (1.8-7.7); NEUTROPHILS % (AUTO) 59.9 % (33-66); RED BLOOD COUNT 4.63 M/MM3 (4.00-5.20); WBC - WHITE BLOOD COUNT 5.4 T/MM3 (4.5-11.0)
--- OUTSIDE RECORDS SUMMARY | 2017-03-08 09:50 | XMS REPORT | Continuity of Care Document ---
Author Author [facility] Organization [facility] Address Unknown Phone Unavailable Allergies Medications Problems Procedures Results Encounters ACCT No. Visit Date/Time Discharge Status Pt. Type Provider Facility Loc./Unit Complaint [id number] 01/20/2014 07:07:00 01/20/2014 23 :59:59 CLS Outpatient [id number] 01/11/2014 08:36:00 01/11/2014 23 :59:59 CLS Outpatient [id number] 12/16/2013 14:24:00 12/16/2013 23 :59:59 CLS Outpatient [id number] 09/30/2013 10:45:00 09/30/2013 23 :59:59 CLS Outpatient [id number] 08/19/2013 09:02:00 08/19/2013 23 :59:59 CLS Outpatient
--- NOTE | 2017-03-08 09:51 | ERPDOC ---
Departure Disposition Decision Date: March 08, 2017 Disposition Decision Time: 10:38 Disposition: 01 DISCHARGED HOME, SELF-CARE Impression Impression Impression: Primary Impression: Atypical chest pain Severity: Mild Condition: Stable Seen By: Physician only Referrals: HERNANDEZ GALAN MD (Family) 1 Week Patient Instructions: Noncardiac Chest Pain (ED) Problems/Meds/Labs Reviewed?: Yes Medications reviewed and manag: Yes Additional Instructions: We have evaluated you for various causes of chest pain. We did not find any life -threatening causes of your chest pain. Follow up with your doctor later this week. Follow up care ordered?: Yes Mental Status: Alert, Oriented HPI - Chest Pain General Chief Complaint: Chest Pain Stated Complaint: chest pressure Time Seen by Provider: 09:02 Source: patient Exam Limitations: no limitations HPI - Chest Pain Initial Comments 71yo woman presents to the ER for evaluation of chest pressure. Pt has had intermittent CP for the last week; last episode was last night. Pt has had no pressure since last night. Pt took 325mg at the outset of her pain; took 400mg ibuprofen last night. Has never had sx like this before. Sx are paroxysmal. Has HTN, Allergies: Coded Allergies: Iodinated Contrast Media - Oral and (Verified Allergy, Unknown, HIVES, 10/13) amoxicillin (Verified Allergy, Unknown, 03/08/17) cefixime (Verified Adverse Reaction, Unknown, DIARHHEA, 03/08/17) Past History Vaccines Hx Influenza Vaccination: Yes () Hx Pneumococcal Vaccination: Yes (WITHIN PAST 5 YEARS) Social History Does patient use chewing tobac: No Physical Exam General Vitals and Pain First Documented Vital Signs Date Time Temp Pulse Resp B/P Pulse Ox O2 Delivery O2 Flow Rate FiO2 03/08/17 09:00 98.6 74 16 155/69 97 Room Air Weight: Kilograms: 73.400 Height (feet): 5 Height (inches): 5.00 Triage Pain Scale: Progress Results/Orders Orders Procedure Category Date Status Time Cbc W/Auto LAB 03/08/17 Complete Diff-Reflex Manual 09:02 Bmp - Basic Metabolic LAB 03/08/17 Complete Panel 09:02 Probnp LAB 03/08/17 Complete 09:02 Troponin I W LAB 03/08/17 Complete Hemolysis Index 09:02 INR LAB 03/08/17 Complete 09:02 EKG EKG 03/08/17 Logged 09:02 Chest 1 View RAD 03/08/17 Resulted 09:02 Iv Lock (Ed Only) EDM 03/08/17 Transmitted 09:02 Aspirin (Asa) PHA 03/08/17 Complete 09:15 Nitroglycerin PHA 03/08/17 In Process (Nitrostat) 09:15 Lab Results Laboratory Tests Test 03/08/17 09:38 White Blood Count 5.4T/MM3 Red Blood Count 4.63M/MM3 Hemoglobin 12.9GM/DL Hematocrit 40.4% Mean Corpuscular Volume 87.3UM3 Mean Corpuscular Hemoglobin 27.9UUG Mean Corpuscular Hemoglobin Concent 31.9GM/DL RDW Standard Deviation 41.7FL Platelet Count 281T/MM3 Mean Platelet Volume 9.2UM3 Immature Granulocyte % (Auto) 0.2% Neutrophils (%) (Auto) 59.9% Lymphocytes (%) (Auto) 27.1% Monocytes (%) (Auto) 9.0% Eosinophils (%) (Auto) 3.4% Basophils (%) (Auto) 0.4% Absolute Immature Granulocyte (auto 0.01T/MM3 Absolute Neutrophils (auto) 3.2T/MM3 Absolute Lymphocytes (auto) 1.5T/MM3 Absolute Monocytes (auto) 0.5T/MM3 Absolute Eosinophils (auto) 0.2T/MM3 Absolute Basophils (auto) 0.0T/MM3 Prothromb Time International Ratio 1.15 Turbidity < 20 Sodium Level 145MEQ/L Potassium Level 4.0MEQ/L Chloride Level 106MEQ/L Carbon Dioxide Level 27MEQ/L Anion Gap 12MEQ/L Blood Urea Nitrogen 17.0MG/DL Creatinine 0.9MG/DL Glomerular Filtration Rate Calc 62 BUN/Creatinine Ratio 19RATIO Glucose Level 103MG/DL Calculated Osmolality 281MOSM/KG Calcium Level 9.6MG/DL Icterus Index < 2 Troponin I < 0.012ng/ml RL-Tik-A-Type Natriuretic Peptide 70PG/ML Chemistry Specimen Hemolysis 26 Medications Current ED Medications Aspirin (ASA) 324 mg O ONCE PO Last administered on 03/08/17t 09:13; Start 10/13 at 09:15; Stop 03/08/17 at 09:16; Status DC Nitroglycerin (Nitrostat) 0.4 mg Q5MIN PRN SL CHEST PAIN; Start 03/08/17 at 09: 15 Progress Progress 71yo woman without evidence of CT, PNA, PTX, pericarditis, or dissection. No apparent cause of pts intermittent CP, and pt is CP free today. Will d/c to home with good RTC precautions and instructions for f/u. Pt voiced understanding of dx, prognosis, tx, and need for f/u. EKG EKG : Rate: 60-100 Rhythm: sinus [place]: normal QRS: normal Intervals: normal ST/T: normal Interpreted by: signing physician Xray Xray : Xray: CXR Portable Interpretation: Normal, Reviewed Written Report DOC LONGORIA DO March 08, 2017 09:51
[2017-03-08 09:58] LABS: INR 1.15 (0.76-1.04); PROTHROMBIN TIME 12.5 SEC (9.31-12.49)
--- NOTE | 2017-03-08 10:00 | NUR ---
UPDATE PATIENT SITTING UP IN BED, PATIENT REPORTS NO CHANGE IN STATUS AT THIS TIME. PATIENT DENIES ANY CHEST PRESSURE AT THIS TIME. PATIENT AMBULATORY TO RESTROOM, TOLERATES ACTIVITY WELL.
[2017-03-08 10:02] LABS: ANION GAP 12 MEQ/L (5-15); BUN/CREATININE RATIO 19 RATIO (6-26); CALCIUM 9.6 MG/DL (8.4-10.2); CHLORIDE 106 MEQ/L (98-107); CO2 - CARBON DIOXIDE 27 MEQ/L (22-30); CREATININE 0.9 MG/DL (0.7-1.2); GLOMERULAR FILTRATION RATE 62; GLUCOSE 103 MG/DL (65-110); SODIUM 145 MEQ/L (134-144)
[2017-03-08 10:13] LABS: PROBNP 70 PG/ML (0-175)
--- NOTE | 2017-03-08 10:13 | NUR ---
XRAY RADIOLOGY AT BEDSIDE FOR PORTABLE CXR
--- NOTE | 2017-03-08 10:27 | DI ---
Indication: ITS.REASON: CP CHEST 1 VIEW: Comparison: None Technique: Single AP upright portable chest Findings: Patient shows normal heart, central vascularity and mediastinum. Lungs are clear. No acute bony findings. Impression: Unremarkable single view chest .
--- NOTE | 2017-03-08 10:42 | NUR ---
PROVIDER MAY AT BEDSIDE TO DISCUSS RESULTS AND POC
[2017-03-08 10:49] VITALS: BP 139/71; PULSE 74; RESP 15; TEMP 98.6; O2SAT 100
== END 2017-03-08 10:49 | disposition home or self-care (01) ==
LOC: ED 08:59
DX: R07.89 Other chest pain (principal); I10 Essential (primary) hypertension
CPT/HCPCS: 36415; 71010; 80048; 83880; 84484; 85025; 85610; 93005; 99283; A9270